=== PATIENT | male | born 1970 | race Caucasian/White ===

== ENCOUNTER 2019-01-17 08:03 | Outpatient (CLI) | payer OTHER ==
[~2019-01-17] VITALS: Ht 170.2 cm; Wt 88.5 kg
[2019-01-17] MEDS ORDERED: LISI10TA2 PO (14:25)
== END 2019-01-17 14:26 | disposition home or self-care (01) ==
LOC: PREOP 08:03 → EDUNIT# 13:30 → PREOP 14:26
PROVIDERS: ATTEND Otolaryngology Otolaryngology/Facial Plastic Surgery
DX: Z01.818 Encounter for other preprocedural examination (principal)

== ENCOUNTER 2019-02-26 02:37 | Emergency (ER) | payer OTHER ==
[~2019-02-26] VITALS: Ht 170 cm; Wt 90.0 kg
[~2019-02-26 02:37] MED LIST: HYDR-3812 PO; LISI10TA2 PO
[2019-02-26] MEDS ORDERED: ONDANSETRON 4 MG (ZOFRAN) ORAL DISSOLVE TAB PO STA (02:48)
--- NOTE | 2019-02-26 02:57 | ED Upper Extremity ---
General Chief Complaint: Upper Extremity Stated Complaint: L ARM,SHOULDER PAIN Nursing Triage Note: PT STATES HE SLEPT ON THE COUCH LAST NIGHT AND WOKE UP WITH LEFT SHOULDER PAIN. PT STATES THE PAIN WORSENED OVER THE DAY Nursing Sepsis Screen: No Definite Risk Source: patient Exam Limitations: no limitations History of Present Illness Date Seen by Provider: Feb 26, 2019 Time Seen by Provider: 02:50 Initial Comments Patient is a 48-year-old right-handed male presents with gradual onset left shoulder pain for the past greater than 18 hours. Patient states he awoke yesterday with left anterior shoulder pain. Pain is described dull aching is rated moderate to severe is worse with palpation and range of motion it is rated moderate to severe. Patient denies trauma or repetitive strain injury. Reports report history of left shoulder surgery. Pain is nonradiating. Pain is been treated with ibuprofen and ice and rest. Denies neck pain chest pain, shortness of breath. No other acute symptoms or complaints. Onset: yesterday Pain/Injury Location: left shoulder Method of Injury: unknown Modifying Factors: Improves With Immobilization, Improves With Movement, Improves With Pain Medication Allergies and Home Medications Allergies Coded Allergies: No Known Drug Allergies (Unverified , 01/17/19) Home Medications Hydrocodone/Acetaminophen 1 Each Tablet, 1 TAB PO Q4-6HR Prescribed by: LILIYA VASQUEZ on 01/20/19 1215 Lisinopril 10 Mg Tablet, 10 MG PO DAILY, (Reported) Patient Home Medication List Home Medication List Reviewed: Yes Review of Systems Constitutional: no symptoms reported EENTM: no symptoms reported Respiratory: no symptoms reported Musculoskeletal: see HPI Past Kcemenn-Wnwdur-Qpucbs Hx Past Med/Social Hx: Reviewed Nursing Past Med/Soc Hx Patient Social History Alcohol Use: Denies Use Recreational Drug Use: No Smoking Status: Never a Smoker 2nd Hand Smoke Exposure: No Recent Foreign Travel: No Contact w/Someone Who Travel: No Recent Infectious Disease Expo: No Recent Hopitalizations: No Physical Abuse: No Sexual Abuse: No Mistreated: No Seasonal Allergies Seasonal Allergies: Yes Past Medical History Surgeries: Yes (SHOULDER X2, KNEE X3) Respiratory: No Cardiac: Yes Hypertension Neurological: No Genitourinary: No Gastrointestinal: No Musculoskeletal: No Endocrine: No HEENT: Yes Cancer: No Psychosocial: No Integumentary: No Blood Disorders: No (HX DVT AFTER KNEE SX WHEN 16) Physical Exam Vital Signs Vital Signs - First Documented 02/26/19 02:45 Temp 36.8 Pulse 72 Resp 20 B/P (MAP) 174/102 (126) Pulse Ox 96 O2 Delivery Room Air Capillary Refill : Less Than 3 Seconds Height, Weight, BMI Height: 5'7.00" Weight: 195lbs. 0.0oz. 88.263724sp; 31.00 BMI Method: General Appearance: moderate distress HEENT: PERRL/EOMI, normal ENT inspection (secondary to pain) Neck: non-tender, full range of motion, supple, normal inspection Cardiovascular: normal peripheral pulses, regular rate, rhythm Respiratory: chest non-tender, lungs clear Gastrointestinal: soft Back: normal inspection Shoulder: No bone tenderness, No deformity (left anterior deltoid pain/tenderness, worse with palpation and passive range of motion, active range of motion limited by pain); limited ROM, pain, soft tissue tenderness Elbow/Forearm: normal inspection, non-tender, no evidence of injury, normal ROM Wrist: Yes normal inspection Progress/Results/Core Measures Results/Orders My Orders Orders - MARIO PERDOMO DO Hydromorphone Injection (Dilaudid Inject (02/26/19 03:00) Ketorolac Injection (Toradol Injection) (02/26/19 03:00) Ondansetron Oral Dissolve Tab (Zofran (02/26/19 02:48) Nursing Communication (Order) (02/26/19 02:48) Shoulder 3 View Left (02/26/19 02:48) Vital Signs/I&O 02/26/19 02:45 Temp 36.8 Pulse 72 Resp 20 B/P (MAP) 174/102 (126) Pulse Ox 96 O2 Delivery Room Air Blood Pressure Mean: 126 Departure Communication (Admissions) Reproducible left shoulder pain consistent with rotator cuff injury. Narcotic pain medication given with with some symptomatic relief. X-ray reviewed. Will place in sling with PCP follow-up. Return precautions reviewed. Impression Primary Impression: Pain in left shoulder Additional Impression: Rotator cuff injury Disposition: 01 HOME, SELF-CARE Condition: Stable Departure-Patient Inst. Referrals: SELF,KALYN CHIU (PCP/Family) Primary Care Physician Patient Instructions: Rotator Cuff Injury Add. Discharge Instructions: You were evaluated in the emergency department for left shoulder pain. X-rays were obtained and do not show evidence of bony abnormality. Symptoms are most consistent with a rotator cuff type injury. Please wear sling, apply ice for 20- 30 minutes every 2-3 hours, take 600 mg of ibuprofen every 8 hours and Percocet as needed for additional pain relief. Follow-up with your PCP early next week for reevaluation consideration of MRI and orthopedic referral. All discharge instructions reviewed with patient and/or family. Voiced understanding. Scripts Oxycodone HCl/Acetaminophen (Percocet 10-325 mg Tablet) 1 Each Tablet 1 TAB PO Q6H PRN for PAIN-MODERATE MDD 3 TABS for 5 Days, #20 TAB Prov: MARIO PERDOMO DO 02/26/19 MARIO PERDOMO DO Feb 26, 2019 02:57
[2019-02-26] MEDS ORDERED: OXYC1TAB12 PO (02:58)
[2019-02-26] MEDS ORDERED: HYDROmorphone 2 MG/ML VIAL (DILAUDID) IM ONE (03:00)
[2019-02-26] MEDS ORDERED: KETOROLAC 60 MG/2 ML VIAL IM ONE (03:00)
[2019-02-26 03:13] VITALS: BP 179/112
--- NOTE | 2019-02-26 08:36 | Diagnostic Imaging Report ---
Clinical indication: Patient with shoulder pain. Exam: X-ray of the left shoulder, 3 views. Comparison: None. Findings: There is no acute fracture or dislocation. There is no significant bone or joint abnormality. The left acromioclavicular interval is unremarkable. Impression: Unremarkable x-ray of the left shoulder. Dictated by: Dictated on workstation # [id number]
== END 2019-02-26 03:13 | disposition home or self-care (01) ==
LOC: EDUNIT# 02:37 → ER FS 02:38
DX: S46.002A Unspecified injury of muscle(s) and tendon(s) of the rotator cuff of left shoulder, initial encounter (principal); I10 Essential (primary) hypertension; Z86.718 Personal history of other venous thrombosis and embolism; Z98.890 Other specified postprocedural states; X58.XXXA Exposure to other specified factors, initial encounter
CPT/HCPCS: 73030; 96372

== ENCOUNTER 2022-07-18 14:23 | Emergency (ER) | payer OTHER ==
[~2022-07-18 14:23] MED LIST changes: +ACHD5005 PO; -HYDR-3812 PO; -LISI10TA2 PO; +LISI10TA25 PO; +OXYC1TAB12 PO
[2022-07-18] MEDS ORDERED: NS IV 1000 ML 1,000 ML IV STA ×2 (14:41→16:18)
[2022-07-18 14:53] LABS: BASOPHILS # (AUTO) 0.1 10^3/uL (0.0-0.1); BASOPHILS % (AUTO) 1 % (0-10); EOSINOPHILS # (AUTO) 0.7 10^3/uL (0.0-0.3); EOSINOPHILS % (AUTO) 3 % (0-10); HEMATOCRIT 46 % (40-54); HEMOGLOBIN 15.4 g/dL (13.3-17.7); LYMPHOCYTES # (AUTO) 2.5 10^3/uL (1.0-4.0); LYMPHOCYTES % (AUTO) 11 % (12-44); MEAN CORPUSCULAR HEMOGLOBIN 29 pg (25-34); MEAN CORPUSCULAR HGB CONC 34 g/dL (32-36); MEAN CORPUSCULAR VOLUME 87 fL (80-99); MEAN PLATELET VOLUME 8.6 fL (9.0-12.2); MONOCYTES # (AUTO) 2.1 10^3/uL (0.0-1.0); MONOCYTES % (AUTO) 10 % (0-12); NEUTROPHILS # (AUTO) 16.5 10^3/uL (1.8-7.8); NEUTROPHILS % (AUTO) 74 % (42-75); PLATELET COUNT 406 10^3/uL (130-400); WHITE BLOOD COUNT 22.3 10^3/uL (4.3-11.0)
[2022-07-18] MEDS ORDERED: AZITHROMYCIN 250 MG TAB (ZITHROMAX) PO STA (15:08)
[2022-07-18] MEDS ORDERED: ORPHENADRINE 60 MG/2 ML (NORFLEX) AMP (ED ONLY) IVP STA (15:08)
--- NOTE | 2022-07-18 15:10 | Diagnostic Imaging Report ---
INDICATION: Progressive cough. FINDINGS: There are abnormal airspace opacities present at the right lung base. In the setting of cough, this may reflect a pneumonia. This should be followed to complete resolution. The left lung appears clear. There is no significant effusion evident. There is no pneumothorax. Heart size is normal. Pulmonary vascularity is normal. IMPRESSION: Abnormal airspace opacities at the right lung base most likely reflecting pneumonia. This should however be followed to complete resolution to exclude the possibility of a lung mass. The left lung appears clear. Dictated by: Dictated on workstation # [id number]
--- NOTE | 2022-07-18 15:13 | ED Cough/URI ---
General Chief Complaint: Respiratory Problems Stated Complaint: SOB Nursing Triage Note: Patient presents to the ED from [facility] with c/o shortness of breath and dizziness. Reports cough x1 month and worsening shortness of breath today. States he was being seen by his PCP and given an albuterol breathing treatment but was unable to tolerate it. Stood up and became dizzy. Was sent to the ED for further evaluation. Patient ambulated to room. Source: patient History of Present Illness Date Seen by Provider: Jul 18, 2022 Time Seen by Provider: 14:39 Initial Comments 51-year-old male presenting with complaints of increasing right lower chest and rib pain. He has been coughing for over a month and being more short of breath with exertion. He states he every year gets similar symptoms but does not have the pain like this. He thought that he may be in broken a rib with coughing. He was seen in the clinic and when trying to do a breathing treatment it was making him cough which made the pain worse and hurt his side more. He stood up and became dizzy after that. They advised him to come to the emergency department for further testing and evaluation. He denies having a fever or chills, abdominal pain, nausea, vomiting, change in his bowels, runny nose or congestion. He reports having pneumonia several times as a child and that every year he gets symptoms of cough and cold that last for a month or more. Timing/Duration: just prior to arrival (Worsening just prior to arrival when he was trying to do a breathing treatment in the clinic. However his symptoms have been going on for over a month with the right lower chest and rib pain for the last several days) Severity/Quality: severe, dry cough Prior Episodes/Possible Cause: occasional episodes (At least yearly having episodes of chronic coughing) Modifying Factors: Worse With Activity, Worse With Albuterol Nebulizer, Worse With Coughing Associated Symptoms: chest pain/soreness (Right lower lateral), cough, dizziness, shortness of breath, wheezing Allergies and Home Medications Allergies Coded Allergies: No Known Drug Allergies (Unverified , 01/17/19) Patient Home Medication List Home Medication List Reviewed: Yes Albuterol Sulfate (Proventil Hfa) 6.7 Gm Hfa.aer.ad, 2 PUFF INH Q6H PRN for SHORTNESS OF BREATH Prescribed by: LING MARTINS on 07/18/22 1716 Azithromycin (Azithromycin) 500 Mg Tablet, 500 MG PO DAILY Prescribed by: LING MARTINS on 07/18/22 1636 Hydrocodone Bit/Acetaminophen (Lortab 5 Mg Tablet) 1 Each Tablet, 1 TAB PO Q4- 6HR Prescribed by: LILIYA VASQUEZ on 01/20/19 1215 Lisinopril (Lisinopril) 10 Mg Tablet, 10 MG PO DAILY, (Reported) Entered as Reported by: ROLLY BELTRAN on 01/17/19 1425 Oxycodone HCl/Acetaminophen (Percocet 10-325 mg Tablet) 1 Each Tablet, 1 TAB PO Q6H PRN for PAIN-MODERATE Prescribed by: MARIO PERDOMO on 02/26/19 0258 Prednisone (Prednisone) 20 Mg Tab, 40 MG PO DAILY Prescribed by: LING MARTINS on 07/18/22 1636 Review of Systems Review of Systems Constitutional: No chills, No diaphoresis; dizziness; No fever EENTM: no symptoms reported Respiratory: cough, short of breath, wheezing Cardiovascular: chest pain (Right lower lateral chest pain) Gastrointestinal: no symptoms reported Genitourinary: no symptoms reported Musculoskeletal: no symptoms reported Skin: No rash Psychiatric/Neurological: No Symptoms Reported Past Hnivmui-Zksfoa-Zkijvg Hx Patient Social History Tobacco Use?: No Use of E-Cig and/or Vaping dev: No Substance use?: No Alcohol Use?: Yes Alcohol Frequency: Once in a while Immunizations Up To Date Influenza Vaccine Up-to-Date: No; Not Current First/Initial COVID19 Vaccinat: Denies Seasonal Allergies Seasonal Allergies: Yes Past Medical History Surgery/Hospitalization HX: Asthma; HTN Surgeries: Yes (SHOULDER X2, KNEE X3) Respiratory: No Cardiac: Yes Hypertension Neurological: No Genitourinary: No Gastrointestinal: No Musculoskeletal: No Endocrine: No HEENT: Yes Cancer: No Psychosocial: No Integumentary: No Blood Disorders: No (HX DVT AFTER KNEE SX WHEN 16) Physical Exam Vital Signs - First Documented Capillary Refill : Less Than 3 Seconds Height: 5'7.00" Weight: 195lbs. 0.0oz. 88.123112ub; 31.00 BMI Method: General Appearance: WD/WN, no apparent distress HEENT: PERRL/EOMI, pharynx normal Neck: non-tender, full range of motion, supple, normal inspection Respiratory: No chest non-tender (Tender to palpation in the right lower lateral chest); lungs clear, no respiratory distress, no accessory muscle use, decreased breath sounds Cardiovascular: normal peripheral pulses, tachycardia Gastrointestinal: normal bowel sounds, non tender, soft, no pulsatile mass Extremities: normal range of motion, non-tender, normal capillary refill Neurologic/Psychiatric: alert, oriented x 3 Skin: normal color, warm/dry Focused Exam Sepsis Stage: Sepsis Possible Source: Pulmonary Lactate Level 07/18/22 14:33: Lactic Acid Level 2.30*H Time of Focused Exam: 16:08 Respiratory: No Chest Non Tender (tender to palpation right lateral chest wall. No crepitus or step off); Lungs Clear, Normal Breath Sounds, No Accessory Muscle Use, No Respiratory Distress Cardiovascular: Regular Rate, Rhythm, Normal Peripheral Pulses Capillary Refill: Less Than 3 Seconds Peripheral Pulses: 2+ Carotid (R), 2+ Carotid (L), 2+ Radial Pulses (R), 2+ Radial Pulses (L) Skin: normal color, warm/dry Lactic Acid Level Laboratory Tests Test 07/18/22 14:33 Lactic Acid Level 2.30 MMOL/L (0.50-2.00) *H Within 3hrs of presentation: Admin fluids, Admin ABX, Blood cultures prior to ABX's, D/C Instructions given to patient, Focus exam, Lactate level Progress/Results/Core Measures Suspected Sepsis SIRS Temperature: Pulse: 118 Respiratory Rate: 25 Laboratory Tests 07/18/22 14:33: White Blood Count 22.3H Blood Pressure 165 /97 Mean: 119 07/18/22 14:33: Lactic Acid Level 2.30*H Laboratory Tests 07/18/22 14:33: Creatinine 1.07, Platelet Count 406H, Total Bilirubin 0.2 Results/Orders Lab Results Laboratory Tests Test 07/18/22 14:33 07/18/22 14:35 Range/Units White Blood Count 22.3 H 4.3-11.0 10^3/uL Red Blood Count 5.27 4.30-5.52 10^6/uL Hemoglobin 15.4 13.3-17.7 g/dL Hematocrit 46 40-54 % Mean Corpuscular Volume 87 80-99 fL Mean Corpuscular Hemoglobin 29 25-34 pg Mean Corpuscular Hemoglobin Concent 34 32-36 g/dL Red Cell Distribution Width 13.1 10.0-14.5 % Platelet Count 406 H 130-400 10^3/uL Mean Platelet Volume 8.6 L 9.0-12.2 fL Immature Granulocyte % (Auto) 2 % Neutrophils (%) (Auto) 74 42-75 % Lymphocytes (%) (Auto) 11 L 12-44 % Monocytes (%) (Auto) 10 0-12 % Eosinophils (%) (Auto) 3 0-10 % Basophils (%) (Auto) 1 0-10 % Neutrophils # (Auto) 16.5 H 1.8-7.8 10^3/uL Lymphocytes # (Auto) 2.5 1.0-4.0 10^3/uL Monocytes # (Auto) 2.1 H 0.0-1.0 10^3/uL Eosinophils # (Auto) 0.7 H 0.0-0.3 10^3/uL Basophils # (Auto) 0.1 0.0-0.1 10^3/uL Immature Granulocyte # (Auto) 0.4 H 0.0-0.1 10^3/uL Neutrophils % (Manual) 72 % Lymphocytes % (Manual) 14 % Monocytes % (Manual) 6 % Eosinophils % (Manual) 3 % Basophils % (Manual) 1 % Band Neutrophils 4 % Sodium Level 138 135-145 MMOL/L Potassium Level 3.2 L 3.6-5.0 MMOL/L Chloride Level 99 98-107 MMOL/L Carbon Dioxide Level 24 21-32 MMOL/L Anion Gap 15 H 5-14 MMOL/L Blood Urea Nitrogen 18 7-18 MG/DL Creatinine 1.07 0.60-1.30 MG/DL Estimat Glomerular Filtration Rate 84 BUN/Creatinine Ratio 17 Glucose Level 126 H 70-105 MG/DL Lactic Acid Level 2.30 *H 0.50-2.00 MMOL/L Calcium Level 9.4 8.5-10.1 MG/DL Corrected Calcium 9.2 8.5-10.1 MG/DL Magnesium Level 2.0 1.6-2.4 MG/DL Total Bilirubin 0.2 0.1-1.0 MG/DL Aspartate Amino Transf (AST/SGOT) 14 5-34 U/L Alanine Aminotransferase (ALT/SGPT) 20 0-55 U/L Alkaline Phosphatase 100 40-136 U/L C-Reactive Protein 1.06 H <0.50 MG/DL Total Protein 7.3 6.4-8.2 GM/DL Albumin 4.2 3.2-4.5 GM/DL Influenza Type A (RT-PCR) Not Detected Not Detecte Influenza Type B (RT-PCR) Not Detected Not Detecte SARS-CoV-2 RNA (RT-PCR) Not Detected Not Detecte My Orders Orders - LING MARTINS MD Cbc With Automated Diff (07/18/22 14:39) Comprehensive Metabolic Panel (07/18/22 14:39) Blood Culture (07/18/22 14:39) Chest 1 View Ap/Pa Only (07/18/22 14:39) Magnesium (07/18/22 14:39) Ekg Tracing (07/18/22 14:39) O2 (07/18/22 14:39) Ed Iv/Invasive Line Start (07/18/22 14:39) Monitor-Rhythm Ecg Trace Only (07/18/22 14:39) Crp Fs (07/18/22 14:39) Lactic Acid Analyzer (07/18/22 14:39) Covid 19 Inhouse Test (07/18/22 14:41) Influenza A And B By Pcr (07/18/22 14:41) Isolation Central Supply Req (07/18/22 14:41) Ns Iv 1000 Ml (Sodium Chloride 0.9%) (07/18/22 14:41) Manual Differential (07/18/22 14:33) Dexamethasone Injection (Decadron Inje (07/18/22 15:08) Orphenadrine Inj (Ed Only) (Norflex Inje (07/18/22 15:08) Azithromycin Tablet (Zithromax Tablet) (07/18/22 15:08) Ns Iv 1000 Ml (Sodium Chloride 0.9%) (07/18/22 16:18) Vital Signs/I&O 07/18/22 07/18/22 07/18/22 14:29 14:29 17:03 Temp 36.6 36.6 Pulse 118 93 Resp 25 23 B/P (MAP) 165/97 (119) 124/66 Pulse Ox 94 95 O2 Delivery Room Air Room Air Room Air Capillary Refill : Less Than 3 Seconds Blood Pressure Mean: 119 Progress Note #1: Progress Note Potential life-threatening diagnosis of pneumonia, lung mass, pneumothorax, pulmonary embolism, myocardial infarction. Placed on cardiac telemetry monitoring and initial interpretation is sinus tachycardia with heart rate in the 120s. Ordered electrocardiogram for more formal evaluation of his rate and rhythm. Chest x-ray to look for signs of pneumonia/pneumothorax/effusion/mass. Ordered peripheral IV to obtain blood for blood count, comprehensive metabolic profile for electrolytes and renal and hepatic function. Ordered blood cultures with a lactic acid to look for signs of sepsis. Progress Note #2: Progress Note Complete blood count was elevated to 22.3 thousand for his white blood cells. He had a left shift along with this. This comprehensive metabolic profile did not show any acute significant abnormality to cause his shortness of breath. He did have elevation of his lactic acid to 2.3. He was receiving IV fluids and was also given Rocephin 1 g IV along with Zithromax 500 mg p.o. to treat for pneumonia. On my review of his 1 view chest x-ray he had right lower lobe infiltrate. This could certainly be contributing to his pain in the right lower lobe. He reports that his breathing was improved after IV fluids, steroid, antibiotics, breathing treatment. Advised patient that he also had signs of mild sepsis with his mild elevation of the lactic acid and doubling of his white blood cell count. We will give a second liter of fluid and provided he is continuing to breathe easier and not be as short of breath as earlier with improved heart rate and blood pressure would anticipate discharge to home on oral antibiotics. Progress Note #3: Progress Note I reviewed the radiologist report on the 1 view chest x-ray and they agreed that there was infiltrate in the right lower lobe. Patient was feeling better after the second liter of fluids and was able to walk to the bathroom and back to his room without getting winded and out of breath. His coughing was improved as well. Counseled to use [id number] Mucinex to help thin out his mucus and congestion. Take the full course of antibiotics to treat for infection. He asked for refill on an albuterol inhaler so I sent that to the pharmacy as well. Prednisone burst of 40 mg for 5 days to try and help with inflammation and cough. Encourage fluids and hydration. Use acetaminophen and/or ibuprofen [id number] to help with his rib pain. Check back with the primary care clinic for continued concerns or return if having worsening symptoms ECG Initial ECG Impression Date: Jul 18, 2022 Initial ECG Impression Time: 14:33 Initial ECG Rate: 113 Initial ECG Rhythm: S.Tach Initial ECG Comparisson: Unchanged (January 20, 2019) Comment My initial interpretation of his electrocardiogram shows sinus tachycardia with a heart rate of 113 bpm. MT interval [address] elevation. QT interval 324 ms with a QTc interval 391 ms. Overall appears similar to tracing from January 20, 2019. Diagnostic Imaging Diagonstic Imaging: Xray Plain Films/CT/US/NM/MRI: chest Comments NAME: NIRMALA SPEAR [facility] REC#: [id number] PT STATUS: REG ER : 1970 PHYSICIAN: LING MARTINS MD ADMIT DATE: 07/18/22/ER FS Draft Date of Exam:07/18/22 CHEST 1 VIEW AP/PA ONLY INDICATION: Progressive cough. FINDINGS: There are abnormal airspace opacities present at the right lung base. In the setting of cough, this may reflect a pneumonia. This should be followed to complete resolution. The left lung appears clear. There is no significant effusion evident. There is no pneumothorax. Heart size is normal. Pulmonary vascularity is normal. IMPRESSION: Abnormal airspace opacities at the right lung base most likely reflecting pneumonia. This should however be followed to complete resolution to exclude the possibility of a lung mass. The left lung appears clear. Dictated on workstation # [id number] Dict: 07/18/22 1502 Trans: 07/18/22 1510 [facility] [id number] Interpreted by: ZAINAB SANCHEZ MD Electronically signed by: Reviewed: Reviewed by Me Departure Impression Primary Impression: Pneumonia of right lower lobe due to infectious organism Additional Impression: Sepsis Qualified Codes: A41.9 - Sepsis, unspecified organism Disposition: 01 HOME, SELF-CARE Condition: Stable Departure-Patient Inst. Decision time for Depature: 17:03 Referrals: KALYN LYMAN MD (PCP) Primary Care Physician Patient Instructions: Pneumonia, Adult ED, Sepsis, Adult (DC) Add. Discharge Instructions: Stay well-hydrated and drink plenty of fluids. Use breathing treatments every 4-6 hours as needed for shortness of breath and cough. You may try alternating ice and heat to your right chest wall to help with the pain. Consider taking Mucinex [id number] to help thin out any cough and congestion so that you are not having a cough so hard to get anything up. Take the full course of antibiotics and steroids to help treat for infection over the next 5 days. If worsening symptoms or not improving return or seek medical care for further evaluation. All discharge instructions reviewed with patient and/or family. Voiced understanding. Scripts Albuterol Sulfate (Proventil Hfa) 6.7 Gm Hfa.aer.ad 2 PUFF INH Q6H PRN for SHORTNESS OF BREATH for 30 Days, #6.7 GM 1 Refill Prov: LING MARTINS MD 07/18/22 Prednisone (Prednisone) 20 Mg Tab 40 MG PO DAILY for Cough/short of breath for 5 Days, #10 TAB 0 Refills Prov: LING MARTINS MD 07/18/22 Azithromycin (Azithromycin) 500 Mg Tablet 500 MG PO DAILY for pneumonia for 5 Days, #5 TAB 0 Refills Prov: LING MARTINS MD 07/18/22 LING MARTINS MD Jul 18, 2022 15:13
[2022-07-18 15:16] LABS: BAND NEUTROPHILS 4 %; BASOPHILS % (MANUAL) 1 %; EOSINOPHILS % (MANUAL) 3 %; LYMPHOCYTES % (MANUAL) 14 %; MONOCYTES % (MANUAL) 6 %; NEUTROPHILS % (MANUAL) 72 %
[2022-07-18 15:18] LABS: BILIRUBIN,TOTAL 0.2 MG/DL (0.1-1.0); CALCIUM 9.4 MG/DL (8.5-10.1); CREATININE SERUM 1.07 MG/DL (0.60-1.30); POTASSIUM 3.2 MMOL/L (3.6-5.0)
[2022-07-18 15:19] LABS: ALBUMIN 4.2 GM/DL (3.2-4.5); TOTAL PROTEIN 7.3 GM/DL (6.4-8.2)
[2022-07-18] MEDS ORDERED: AZIT500T9 PO (16:36)
[2022-07-18] MEDS ORDERED: PRD20T PO (16:36)
[2022-07-18 17:03] VITALS: BP 124/66
[2022-07-18] MEDS ORDERED: RT-ALBUINH INH (17:16)
== END 2022-07-18 17:03 | disposition home or self-care (01) ==
LOC: EDUNIT# 14:23 → ER FS 14:24
DX: A41.9 Sepsis, unspecified organism (principal); J16.8 Pneumonia due to other specified infectious organisms; R74.02 Elevation of levels of lactic acid dehydrogenase [LDH]; Z28.310 Unvaccinated for COVID-19; Z20.822 Contact with and (suspected) exposure to COVID-19
CPT/HCPCS: 36415; 71045; 80053; 83605; 83735; 85007; 85027; 86141; 87040; 87636; 93005; 93041

== ENCOUNTER 2022-07-26 12:10 | Inpatient (IN) | payer SELFPAY ==
[~2022-07-26] VITALS: Ht 170.2 cm; Wt 103.4 kg
[~2022-07-26 12:10] MED LIST changes: +AZIT500T9 PO; +PRD20T PO; +RT-ALBUINH INH
[2022-07-26] MEDS ORDERED: morphine INJ 10 MG/ML 1ML (SYR OR VIAL) IVP STA (12:27)
[2022-07-26] MEDS ORDERED: ONDANSETRON 4 MG/2 ML (SDV) Z0FRAN IVP ONE ×2 (12:30→14:00)
[2022-07-26] MEDS ORDERED: RT-ALBUTEROL/IPRATROPIUM 3 ML (DUONEB) VIAL INH ONE (12:30)
--- NOTE | 2022-07-26 12:48 | Diagnostic Imaging Report ---
EXAMINATION: Chest 1 view HISTORY: Shortness of breath. COMPARISON: 07/18/2022. FINDINGS: Interval marked increase in a moderate to large right-sided pleural effusion with increasing right basilar opacities. Stable cardiac silhouette. No pneumothorax. IMPRESSION: 1. Increasing moderate to large right-sided pleural effusion with increasing right basilar opacities. Dictated by: Dictated on workstation # [id number]
[2022-07-26 13:09] LABS: BASOPHILS # (AUTO) 0.1 10^3/uL (0.0-0.1); BASOPHILS % (AUTO) 1 % (0-10); EOSINOPHILS # (AUTO) 0.9 10^3/uL (0.0-0.3); EOSINOPHILS % (AUTO) 4 % (0-10); HEMATOCRIT 51 % (40-54); HEMOGLOBIN 16.7 g/dL (13.3-17.7); LYMPHOCYTES # (AUTO) 1.6 10^3/uL (1.0-4.0); LYMPHOCYTES % (AUTO) 6 % (12-44); MEAN CORPUSCULAR HEMOGLOBIN 29 pg (25-34); MEAN CORPUSCULAR HGB CONC 33 g/dL (32-36); MEAN CORPUSCULAR VOLUME 88 fL (80-99); MEAN PLATELET VOLUME 8.2 fL (9.0-12.2); MONOCYTES % (AUTO) 8 % (0-12); NEUTROPHILS # (AUTO) 19.3 10^3/uL (1.8-7.8); NEUTROPHILS % (AUTO) 78 % (42-75); PLATELET COUNT 376 10^3/uL (130-400); WHITE BLOOD COUNT 24.7 10^3/uL (4.3-11.0)
[2022-07-26 13:19] LABS: INR 0.9 (0.8-1.4); PROTHROMBIN TIME PATIENT 12.3 SEC (12.2-14.7)
[2022-07-26 13:29] LABS: ALANINE AMINOTRANSFERASE 44 U/L (0-55); ALBUMIN 3.4 GM/DL (3.2-4.5); ALKALINE PHOSPHATASE 101 U/L (40-136); BILIRUBIN,TOTAL 0.5 MG/DL (0.1-1.0); BUN/CREATININE RATIO 19; CALCIUM 9.4 MG/DL (8.5-10.1); CARBON DIOXIDE 24 MMOL/L (21-32); CHLORIDE 97 MMOL/L (98-107); GFR ESTIMATED 103; GLUCOSE 134 MG/DL (70-105); POTASSIUM 4.2 MMOL/L (3.6-5.0); SODIUM 134 MMOL/L (135-145); TOTAL PROTEIN 6.6 GM/DL (6.4-8.2)
[2022-07-26 13:37] LABS: EOSINOPHILS % (MANUAL) 2 %; LYMPHOCYTES % (MANUAL) 6 %; MONOCYTES % (MANUAL) 9 %; NEUTROPHILS % (MANUAL) 83 %
--- NOTE | 2022-07-26 13:41 | Diagnostic Imaging Report ---
EXAMINATION: CT chest with intravenous contrast. TECHNIQUE: Multiple contiguous axial images were obtained through the chest after the uneventful administration of intravenous contrast. All CT scans use one or more of the following dose optimizing techniques: automated exposure control, MA and/or KvP adjustment based on patient size and exam type or iterative reconstruction. HISTORY: Left-sided chest pain. Shortness of breath. COMPARISON: Chest radiograph performed earlier the same date. FINDINGS: The heart size is within normal limits. No pericardial effusion is present. There is no mediastinal, hilar, or axillary lymphadenopathy. Large right-sided pleural effusion is seen. There is suggestion of nodularity within the pleura, with one of the more prominent nodules measuring 2.6 x 1.2 cm in the upper right lung. No pleural effusion is seen on the left. No pneumothorax. Dependent and patchy opacities are seen in the right lung. No central endobronchial obstructing lesion. There is right to left mediastinal shift due to mass effect from the large pleural effusion. The osseous structures demonstrate no acute abnormalities. Limited views of the upper abdominal structures demonstrate no acute abnormalities. Both adrenal glands are unremarkable. IMPRESSION: 1. Large right-sided pleural effusion with findings concerning for malignancy given the nodules along the pleural surface. Recommend correlation with patient history and follow-up as indicated. Thoracentesis would also be of benefit to evaluate the fluid. 2. Patchy and consolidative opacities in the right lung. Findings may represent a combination of atelectasis or infection. Dictated by: Dictated on workstation # [id number]
[2022-07-26] MEDS ORDERED: NS 100 ML (IVPB) BAG IV ONE (13:45)
[2022-07-26] MEDS ORDERED: HOLD METFORMIN - RECEIVED CONTRAST 20 ML VIAL IV SCH (13:45)
[2022-07-26] MEDS ORDERED: PIPERACILLIN SODIUM/TAZOBACTAM 4.5 GM in NS (IVPB) 100 ML IV ONE (13:45)
[2022-07-26] MEDS ORDERED: IOHEXOL 350 MG/ML 100 ML (OMNIPAQUE 350) VIAL IV ONE (13:45)
[2022-07-26] MEDS ORDERED: VANCOMYCIN INJECTION 1,000 MG in NS (IVPB) 250 ML IV ONE (14:00)
--- NOTE | 2022-07-26 15:41 | History & Physical-Hospitalist ---
History of Present Illness HPI/Chief Complaint CC: Acute respiratory failure with right pleural effusion with possible masses HPI: This is a 51yoWM clinic patient of Dr Clemons who was dx with PNA last week and finished his abx but saw Dr Clemons in office for right rib pain due to cough induced rib bruise yesterday and he thought he was on the mend but presented to the ER due to worsened dyspnea and was found to have right sided pleural effusion and possible masses suspicious for neoplasm versus infection. He is a lifetime non-smoker. CT IMPRESSION: 1. Large right-sided pleural effusion with findings concerning for malignancy given the nodules along the pleural surface. Recommend correlation with patient history and follow-up as indicated. Thoracentesis would also be of benefit to evaluate the fluid. 2. Patchy and consolidative opacities in the right lung. Findings may represent a combination of atelectasis or infection. Source: patient Exam Limitations: clinical condition Date Seen 07/26/22 Time Seen by a Provider: 15:30 Attending Physician Jimmy Clemons MD PCP Admitting Physician: Sammie Abbott DO Attending Physician: Sammie Abbott DO Referring Physician Date of Admission Jul 26, 2022 at 15:25 Home Medications & Allergies Home Medications Reviewed patient Home Medication Reconciliation performed by pharmacy medication reconciliations central sterile technician and/or nursing. Patients Allergies have been reviewed. Allergies Allergies Coded Allergies No Known Drug Allergies (Unverified01/17/19) Past Oiccdwh-Yyzelv-Vvsnae Hx Patient Social History Marrital Status: single Employed/Student: employed Tobacco Use?: No Smoking Status: Never a Smoker Use of E-Cig and/or Vaping dev: No Substance use?: No Alcohol Use?: No Immunizations Up To Date First/Initial COVID19 Vaccinat: Denies Seasonal Allergies Seasonal Allergies: Yes Current Status Primary Language: Togolese Preferred Spoken Language: Togolese Past Medical History Pneumonia Hypertension Blood Disorders: No (HX DVT AFTER KNEE SX WHEN 16) Review of Systems Constitutional: see HPI EENTM: no symptoms reported Respiratory: dyspnea on exertion, short of breath Cardiovascular: no symptoms reported Gastrointestinal: no symptoms reported Genitourinary: no symptoms reported Musculoskeletal: no symptoms reported Skin: no symptoms reported Psychiatric/Neurological: No Symptoms Reported All Other Systems Reviewed Negative Unless Noted: Yes Physical Exam Physical Exam Vital Signs Vital Signs - First Documented 07/26/22 07/26/22 12:21 16:00 Pulse 117 Resp 18 B/P (MAP) 131/91 (104) Pulse Ox 95 O2 Delivery Room Air Capillary Refill : Height, Weight, BMI Height: 5'7.00" Weight: 195lbs. 0.0oz. 88.505657ao; 33.00 BMI Method: General Appearance: Anxious, Chronically ill, Mild Distress Respiratory: Crackles, Decreased Breath Sounds, Wheezing Cardiovascular: Regular Rate, Rhythm, No Edema, No Gallop, No JVD, No Murmur, Normal Peripheral Pulses Neurologic/Psychiatric: Alert, Oriented x3, No Motor/Sensory Deficits, Normal Mood/Affect Results Results/Procedures Labs Laboratory Tests 07/26/22 13:00 Patient resulted labs reviewed. Assessment/Plan Admission Diagnosis Assessment: Acute respiratory failure Recurrent PNA failed outpatient treatment Right sided large pleural effusion Hypoxia Massess on CT scan? Plan: IV abx O2 Dr Jeffery consult Thoracentesis? Admission Status: Inpatient Order (span 2 midnights) Reason for Inpatient Admission: resp failure SAMMIE ABBOTT DO Jul 26, 2022 15:41
[2022-07-26] MEDS ORDERED: ANTACID SUSP 30 ML UDC (MYLANTA) PO PRN ×2 (15:45)
[2022-07-26] MEDS ORDERED: BISACODYL 10 MG SUPP (DULCOLAX) PR PRN ×2 (15:45)
[2022-07-26] MEDS ORDERED: NS IV 500 ML 500 ML IV PRN ×2 (15:45)
[2022-07-26] MEDS ORDERED: LORazepam INJ 2 MG/ML (ATIVAN) VIAL IVP PRN (15:45)
[2022-07-26] MEDS ORDERED: diphenhydrAMINE 25 MG TAB (BENADRYL) PO PRN ×2 (15:45)
[2022-07-26] MEDS ORDERED: ONDANSETRON 4 MG (ZOFRAN) ORAL DISSOLVE TAB PO PRN ×2 (15:45)
[2022-07-26] MEDS ORDERED: MELATONIN 3 MG TABLET PO PRN (15:45)
[2022-07-26] MEDS ORDERED: LORazepam 0.5 MG (ATIVAN) TABLET PO PRN (15:45)
[2022-07-26] MEDS ORDERED: diphenhydrAMINE 50 MG/ML INJ (BENADRYL) IVP PRN ×2 (15:45)
[2022-07-26] MEDS ORDERED: ACETAMINOPHEN 325 MG TABLET PO PRN (15:45)
[2022-07-26] MEDS ORDERED: ENOXAPARIN 40 MG/0.4 ML (LOVENOX) SYR SC SCH (15:45)
[2022-07-26] MEDS ORDERED: polyethylene glycoL POWDER 17 GM (MIRALAX) PACK PO PRN ×2 (15:45)
[2022-07-26] MEDS ORDERED: PIPERACILLIN SODIUM/TAZOBACTAM 4.5 GM in NS (IVPB) 100 ML IV SCH (15:45)
[2022-07-26] MEDS ORDERED: ONDANSETRON 4 MG/2 ML (SDV) Z0FRAN IV PRN ×2 (15:45)
[2022-07-26] MEDS ORDERED: VANCOMYCIN INJECTION 0.1 MG in NS (IVPB) 250 ML IV SCH ×4 (15:45)
[2022-07-26] MEDS ORDERED: HYDROmorphone 2 MG/ML VIAL (DILAUDID) IV PRN (15:45)
--- NOTE | 2022-07-26 16:03 | Tele-ICU Consult ---
History of Present Illness History of Present Illness Date Seen by Provider: Jul 26, 2022 Time Seen by Provider: 16:13 Date of Admission 07/26/22 History of Present Illness (Tele-ICU Physician , consultation) Available chart/ vitals / labs / Images reviewed H&P is from ER notes Patient's information available about PMH, allergy reviewed in EMR. ROS as per chart and RN report Video assessment done using teleICU camera, rest of exam as per RN Discussed with RN. He is a 51-year-old male with past medical history of hypertension and recently diagnosed with a pneumonia and he was treated and released on 07/18/2022 with azithromycin. Today he came with a complaint of for right-sided chest pain shortness of breath and cough without much sputum production. His right side of the chest is hurting so much that he thought he may have a broken rib. He was using heating pads at home. He denies any fever but he had some sweating's at night. He denies any smoking but chews tobacco. No history of drug abuse present. No known history of COPD, asthma. No history of drug abuse. Today he went to [place] emergency room where he was evaluated and found to have a marked leukocytosis, and chest x-ray showed right pleural effusion large, hence they did a CT scan of the chest which showed right-sided large pleural effusion with underlying atelectasis. Radiologist also reported pleural nodularity. He is subsequently admitted to via [facility] intensive care unit where I have interviewed via video visit. Also discussed with the patient's . Impression 1. Patient likely to have an underlying pneumonia with subacute empyema versus parapneumonic effusion. This is most likely bacterial however a rare possibility of anaerobic bacterial versus fungal pneumonia cannot be ruled out. 2. Tobacco chewing disorder 3. Hypertension. 4. Right-sided chest pain most likely due to pleurisy and pneumonia. Recommendations 1. Agree with antibiotic choice of vancomycin and Zosyn. 2. We will give Dilaudid IV as needed for chest pain 3. Suggest surgical consultation for thoracentesis/chest tube insertion 4. We will send pleural fluid for cell count, culture, total protein, LDH, and pH. 5. DVT prophylaxis with Lovenox. 6. Further recommendations will be made depending upon the thoracentesis results. Discussed with the patient's and the ICU nurse. Coordination of care with with primary care physician and bedside consultants. Critical care time 32 minutes. Allergies and Home Medications Allergies Coded Allergies: No Known Drug Allergies (Unverified , 01/17/19) Home Medications Albuterol Sulfate 6.7 Gm Hfa.aer.ad, 2 PUFF INH Q6H PRN for SHORTNESS OF BREATH Prescribed by: LING MARTINS on 07/18/22 1716 Azithromycin 500 Mg Tablet, 500 MG PO DAILY Prescribed by: LING MARTINS on 07/18/22 1636 Hydrocodone Bit/Acetaminophen 1 Each Tablet, 1 TAB PO Q4-6HR Prescribed by: LILIYA VASQUEZ on 01/20/19 1215 Lisinopril 10 Mg Tablet, 10 MG PO DAILY, (Reported) Oxycodone HCl/Acetaminophen 1 Each Tablet, 1 TAB PO Q6H PRN for PAIN-MODERATE Prescribed by: MARIO PERDOMO on 02/26/19 0258 Prednisone 20 Mg Tab, 40 MG PO DAILY Prescribed by: LING JARAMILLORT on 07/18/22 1636 Past Medical/Social/Family Hx Patient Social History Marrital Status: Employed/Student: employed Tobacco Use?: No Smokeless type used: Chew Use of E-Cig and/or Vaping dev: No Substance use?: No Alcohol Use?: No Immunizations Up To Date First/Initial COVID19 Vaccinat: Denies Current Status Primary Language: Swedish Preferred Spoken Language: Swedish Review of Systems Constitutional: see HPI, diaphoresis Respiratory: see HPI, dyspnea on exertion, short of breath Cardiovascular: chest pain (PLEURITIC,RT SIDE IN AXILLARY REGION) Focused Exam Lactate Level 07/26/22 13:00: Lactic Acid Level 1.76 Height, Weight, BMI Height: 5'7.00" Weight: 195lbs. 0.0oz. 88.032820wf; 33.00 BMI Method: Lactic Acid Level Laboratory Tests Test 07/26/22 13:00 Lactic Acid Level 1.76 MMOL/L (0.50-2.00) Exam Exam Patient acknowledged, consented, and participated in this virtual visit which was conducted using real time audio/video Vital Signs Date Time Temp Pulse Resp B/P (MAP) Pulse Ox O2 Delivery O2 Flow Rate FiO2 07/26/22 12:21 117 18 95 Room Air Height & Weight Height: 5'7.00" Weight: 195lbs. 0.0oz. 88.595328rn; 33.00 BMI Method: General Appearance: Anxious, Moderate Distress Other comments PE PER RN Results Lab Laboratory Tests 07/26/22 13:00 Assessment/Plan Assessment/Plan ABOVE Time spent with patient (mins): 32 CHERI ADAMS MD Jul 26, 2022 16:03
--- NOTE | 2022-07-26 16:13 | Consultation - Surgery ---
MELODIE RENO 07/26/22 1613: History of Present Illness History of Present Illness Patient Consulted On(ct/time) 07/26/22 15:57 Date Seen by Provider: Jul 26, 2022 Time Seen by Provider: 15:57 History of Present Illness Consulted requested per ER. Patient is a 51 year old male that presents to ICU from ER in [place] for worsening shortness of breath and right rib pain. He states that this began a month ago when his asthma and allergies flared up and put him into a coughing fit causing him to cough so hard his right side ribs became painful and extremely SOB. He went a week with these symptoms before coming into the ER in [place] on 07-18-22. He was found to have pneumonia and was given Azithromycin and prednisone of which he completed both courses of medication with little improvement. His pain continued after visiting the ER so he had a virtual office visit with his PCP Dr. Clemons who gave him toradol which did not improve pain significantly. He finished his azithromycin on 07-24-22. His pain and SOB continued so he saw Dr. Clemons again on 07-25-22 and was given hydrocodone/acetaminophen, and at the time Dr. Clemons thought his lungs sounded like they were improving. Today the pain and SOB became to much and he decided to come into the [place] ER to be seen. Upon arrival he received steroids and abx. CT of chest was taken showing large R pleural effusion with nodularity in pleura, along with patchy consolidation opacities in right lung. He states that his rib pain is a 5/10 and worse when coughing, does not radiate anywhere. He denies every having fever or chills during this last month. Today he denies any N/V/D, chest pain, headache, dizziness, hematuria, hemoptysis or hematemesis. No other complaints at this time. Allergies and Home Medications Allergies Coded Allergies: No Known Drug Allergies (Unverified , 01/17/19) Patient Home Medication List Albuterol Sulfate (Proventil Hfa) 6.7 Gm Hfa.aer.ad, 2 PUFF INH Q6H PRN for SHORTNESS OF BREATH Prescribed by: LING MARTINS on 07/18/22 1716 Azithromycin (Azithromycin) 500 Mg Tablet, 500 MG PO DAILY Prescribed by: LING MARTINS on 07/18/22 1636 Hydrocodone Bit/Acetaminophen (Lortab 5 Mg Tablet) 1 Each Tablet, 1 TAB PO Q4- 6HR Prescribed by: LILIYA VASQUEZ on 01/20/19 1215 Lisinopril (Lisinopril) 10 Mg Tablet, 10 MG PO DAILY, (Reported) Entered as Reported by: ROLLY BELTRAN on 01/17/19 1425 Oxycodone HCl/Acetaminophen (Percocet 10-325 mg Tablet) 1 Each Tablet, 1 TAB PO Q6H PRN for PAIN-MODERATE Prescribed by: MARIO PERDOMO on 02/26/19 0258 Prednisone (Prednisone) 20 Mg Tab, 40 MG PO DAILY Prescribed by: LING MARTINS on 07/18/22 1636 Past Tiaxssw-Jcyhpf-Yeixma Hx Patient Social History Smoking Status: Never a Smoker Type Used: Smokeless Tobacco (1 can a day) 2nd Hand Smoke Exposure: No Recent Hopitalizations: No Alcohol Use?: Yes Seasonal Allergies Seasonal Allergies: Yes Surgeries History of Surgeries: Yes (SHOULDER X2, KNEE X3) Surgeries: Orthopedic (3 shoulder surgeries (one right, two left) in high school ,3 knee surgeries all in high school) Respiratory History of Respiratory Disorde: Yes Respiratory Disorders: Asthma (Since childhood) Cardiovascular History of Cardiac Disorders: Yes Cardiac Disorders: Hypertension Neurological History of Neurological Disord: No Genitourinary History of Genitourinary Disor: No Gastrointestinal History of Gastrointestinal Di: No Musculoskeletal History of Musculoskeletal Dis: No Endocrine History of Endocrine Disorders: No HEENT History of HEENT Disorders: No Cancer History of Cancer: No Psychosocial History of Psychiatric Problem: No Integumentary History of Skin or Integumenta: No Blood Transfusions History of Blood Disorders: No (HX DVT AFTER KNEE SX WHEN 16) Family Medical History Significant Family History: Heart Disease (Father), Cancer (Paternal grandmother lung cancer), Diabetes (Father) Review of Systems-General Constitutional: No chills, No fever; weakness EENTM: No mouth pain, No throat pain Respiratory: cough, dyspnea on exertion; No hemoptysis, No phlegm; short of breath; No stridor Cardiovascular: No chest pain, No palpitations Gastrointestinal: No abdominal pain, No nausea, No vomiting Genitourinary: No dysuria, No hematuria Musculoskeletal: No back pain; other (Right rib pain) Skin: No change in color, No dryness Psychiatric/Neurological: Denies Headache, Denies Numbness, Denies Tremors Physical Exam-General Problems Physical Exam Vital Signs Vital Signs - First Documented 07/26/22 12:21 Pulse 117 Resp 18 Pulse Ox 95 O2 Delivery Room Air Capillary Refill : General Appearance: WD/WN, no apparent distress, obese Eyes: Bilateral Eye PERRL, Bilateral Eye EOMI HEENT: PERRL/EOMI; No scleral icterus (R), No scleral icterus (L) Neck: non-tender, supple Respiratory: chest non-tender, no accessory muscle use, decreased breath sounds (Right side ) Cardiovascular: regular rate, rhythm, no murmur Peripheral Pulses: 2+ Radial Pulses (R), 2+ Radial Pulses (L) Gastrointestinal: normal bowel sounds, soft, other (Right sided ribs 9-12 extremely tender to palpation) Rectal: deferred Back: no CVA tenderness; No vertebral tenderness Extremities: non-tender, no calf tenderness Neurologic/Psychiatric: alert, oriented x 3 Skin: normal color, warm/dry Data Review Labs Laboratory Tests 07/26/22 13:00: White Blood Count 24.7H, Red Blood Count 5.78H, Hemoglobin 16.7, Hematocrit 51, Mean Corpuscular Volume 88, Mean Corpuscular Hemoglobin 29, Mean Corpuscular Hemoglobin Concent 33, Red Cell Distribution Width 13.4, Platelet Count 376, Mean Platelet Volume 8.2L, Immature Granulocyte % (Auto) 3, Neutrophils (%) (Auto) 78H, Lymphocytes (%) (Auto) 6L, Monocytes (%) (Auto) 8, Eosinophils (%) (Auto) 4, Basophils (%) (Auto) 1, Neutrophils # (Auto) 19.3H, Lymphocytes # (Auto) 1.6, Monocytes # (Auto) 2.0H, Eosinophils # (Auto) 0.9H, Basophils # (Auto) 0.1, Immature Granulocyte # (Auto) 0.8H, Neutrophils % (Manual) 83, Lymp hocytes % (Manual) 6, Monocytes % (Manual) 9, Eosinophils % (Manual) 2, Prothrombin Time 12.3, INR Comment 0.9, Activated Partial Thromboplast Time 24, Sodium Level 134L, Potassium Level 4.2, Chloride Level 97L, Carbon Dioxide Level 24, Anion Gap 13, Blood Urea Nitrogen 17, Creatinine 0.90, Estimat Glomerular Filtration Rate 103, BUN/Creatinine Ratio 19, Glucose Level 134H, Lactic Acid Level 1.76, Calcium Level 9.4, Corrected Calcium 9.9, Total Bilirubin 0.5, Aspartate Amino Transf (AST/SGOT) 28, Alanine Aminotransferase (ALT/SGPT) 44, Alkaline Phosphatase 101, Troponin I < 0.30, Pro-B-Type Natriuretic Peptide 79.8, Total Protein 6.6, Albumin 3.4 Radiology Date of Exam:07/26/22 CT CHEST W EXAMINATION: CT chest with intravenous contrast. TECHNIQUE: Multiple contiguous axial images were obtained through the chest after the uneventful administration of intravenous contrast. All CT scans use one or more of the following dose optimizing techniques: automated exposure control, MA and/or KvP adjustment based on patient size and exam type or iterative reconstruction. HISTORY: Left-sided chest pain. Shortness of breath. COMPARISON: Chest radiograph performed earlier the same date. FINDINGS: The heart size is within normal limits. No pericardial effusion is present. There is no mediastinal, hilar, or axillary lymphadenopathy. Large right-sided pleural effusion is seen. There is suggestion of nodularity within the pleura, with one of the more prominent nodules measuring 2.6 x 1.2 cm in the upper right lung. No pleural effusion is seen on the left. No pneumothorax. Dependent and patchy opacities are seen in the right lung. No central endobronchial obstructing lesion. There is right to left mediastinal shift due to mass effect from the large pleural effusion. The osseous structures demonstrate no acute abnormalities. Limited views of the upper abdominal structures demonstrate no acute abnormalities. Both adrenal glands are unremarkable. IMPRESSION: 1. Large right-sided pleural effusion with findings concerning for malignancy given the nodules along the pleural surface. Recommend correlation with patient history and follow-up as indicated. Thoracentesis would also be of benefit to evaluate the fluid. 2. Patchy and consolidative opacities in the right lung. Findings may represent a combination of atelectasis or infection. Dictated by: Dictated on workstation # [id number] Dict: 07/26/22 1333 Trans: 07/26/22 1346 [facility] [id number] Interpreted by: MARCO JEFFERSON DO Electronically signed by: MARCO JEFFERSON DO 07/26/22 1346 Date of Exam:07/26/22 CHEST 1 VIEW AP/PA ONLY EXAMINATION: Chest 1 view HISTORY: Shortness of breath. COMPARISON: 07/18/2022. FINDINGS: Interval marked increase in a moderate to large right-sided pleural effusion with increasing right basilar opacities. Stable cardiac silhouette. No pneumothorax. IMPRESSION: 1. Increasing moderate to large right-sided pleural effusion with increasing right basilar opacities. Dictated by: Dictated on workstation # [id number] Dict: 07/26/22 1245 Trans: 07/26/22 1249 [facility] [id number] Interpreted by: MARCO JEFFERSON DO Electronically signed by: MARCO JEFFERSON DO 07/26/22 1249 Assessment/Plan Assessment/Plan Assessment/Plan Right sided plural effusion with nodularity- Per CT Right sided rib pain/Dyspnea Possible pneumonia Plan Discuss possible thoracentesis with patient/ Risks&Benefits Pain management Continue steroids, Abx, IV fluids DVT prophylaxis-hold until thoracentesis is done WALTER FRANCOIS DO 07/26/22 1711: History of Present Illness History of Present Illness Time Seen by Provider: 16:41 History of Present Illness Surgery asked to consult regarding pleural effusion. HPI per E-ICU: He is a 51-year-old male with past medical history of hypertension and recently diagnosed with a pneumonia and he was treated and released on 07/18/2022 with azithromycin. Today he came with a complaint of for right-sided chest pain shortness of breath and cough without much sputum production. His right side of the chest is hurting so much that he thought he may have a broken rib. He was using heating pads at home. He denies any fever but he had some sweating's at night. He denies any smoking but chews tobacco. No history of drug abuse present. No known history of COPD, asthma. No history of drug abuse. Today he went to [place] emergency room where he was evaluated and found to have a marked leukocytosis, and chest x-ray showed right pleural effusion large, hence they did a CT scan of the chest which showed right-sided large pleural effusion with underlying atelectasis. Radiologist also reported pleural nodularity. He is subsequently admitted to via [facility] intensive care unit where I have interviewed via video visit. Also discussed with the patient's . When I spoke to pt he said his breathing was ok, still with moderate pain on the right. Allergies and Home Medications Allergies Coded Allergies: No Known Drug Allergies (Unverified , 01/17/19) Patient Home Medication List Home Medication List Reviewed: Yes Albuterol Sulfate (Proventil Hfa) 6.7 Gm Hfa.aer.ad, 2 PUFF INH Q6H PRN for SHORTNESS OF BREATH Prescribed by: LING MARTINS on 07/18/22 1716 Azithromycin (Azithromycin) 500 Mg Tablet, 500 MG PO DAILY Prescribed by: LING MARTINS on 07/18/22 1636 Hydrocodone Bit/Acetaminophen (Lortab 5 Mg Tablet) 1 Each Tablet, 1 TAB PO Q4- 6HR Prescribed by: LILIYA VASQUEZ on 01/20/19 1215 Lisinopril (Lisinopril) 10 Mg Tablet, 10 MG PO DAILY, (Reported) Entered as Reported by: ROLLY BELTRAN on 01/17/19 1425 Oxycodone HCl/Acetaminophen (Percocet 10-325 mg Tablet) 1 Each Tablet, 1 TAB PO Q6H PRN for PAIN-MODERATE Prescribed by: MARIO PERDOMO on 02/26/19 0258 Prednisone (Prednisone) 20 Mg Tab, 40 MG PO DAILY Prescribed by: LING MARTINS on 07/18/22 1636 Past Rywjomc-Rrqwup-Vbmbbu Hx Patient Social History Smoking Status: Never a Smoker Type Used: Smokeless Tobacco (1 can a day) Alcohol Use?: Yes (2-3 beers a month) Surgeries History of Surgeries: Yes Surgeries: Orthopedic (3 shoulder surgeries (one right, two left) in high school ,3 knee surgeries all in high school) Respiratory History of Respiratory Disorde: Yes Respiratory Disorders: Asthma (Since childhood) Cardiovascular History of Cardiac Disorders: Yes Cardiac Disorders: Deep Vein Thrombosis (after surgery when he was 16) Neurological History of Neurological Disord: No Reproductive System Hx Reproductive Disorders: No Genitourinary History of Genitourinary Disor: No Gastrointestinal History of Gastrointestinal Di: No Musculoskeletal History of Musculoskeletal Dis: No Endocrine History of Endocrine Disorders: No HEENT History of HEENT Disorders: No Loss of Vision: Denies Hearing Impairment: Denies Cancer History of Cancer: No Psychosocial History of Psychiatric Problem: No Integumentary History of Skin or Integumenta: No Family Medical History Significant Family History: Heart Disease (Father), Cancer (Paternal grandmother lung cancer), Diabetes (Father) Review of Systems-General Constitutional: No chills, No fever; weakness EENTM: No blurred vision, No mouth pain, No throat pain Respiratory: cough, dyspnea on exertion; No hemoptysis, No phlegm; short of breath; No stridor Cardiovascular: No chest pain, No palpitations Gastrointestinal: No abdominal pain, No nausea, No vomiting Genitourinary: No dysuria, No hematuria Musculoskeletal: No back pain, No joint pain; other (Right rib pain) Skin: No change in color, No dryness Psychiatric/Neurological: Denies Headache, Denies Numbness, Denies Tremors Physical Exam-General Problems Physical Exam General Appearance: WD/WN, no apparent distress, obese Eyes: Bilateral Eye PERRL, Bilateral Eye EOMI HEENT: pharynx normal; No scleral icterus (R), No scleral icterus (L) Neck: non-tender, supple Respiratory: chest non-tender, no respiratory distress, no accessory muscle us e, decreased breath sounds (Right side - really dont hear any), other (dullness to percussion, entire right lung) Cardiovascular: no murmur, tachycardia Peripheral Pulses: 2+ Radial Pulses (R), 2+ Radial Pulses (L) Gastrointestinal: normal bowel sounds, soft, no organomegaly, hernia (small umbilical), other (Right sided ribs 9-12 extremely tender to palpation) Rectal: deferred Back: CVA tenderness (R); No vertebral tenderness Extremities: non-tender, no pedal edema, no calf tenderness Neurologic/Psychiatric: 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 Plan to do Thoracentesis tomorrow in am and send fluid for Culture and Cytology. This should also help with his breathing and oxygen saturation. Supervisory-Addendum Brief Verification & Attestation Participated in pt care: history, MDM, physical Personally performed: exam, history, MDM, supervision of care Care discussed with: Medical Student Procedures: n/a Verification and Attestation of Medical Student E/M Service A medical student performed and documented this service. I then reviewed and verified all information documented by the medical student and made modifications to such information, when appropriate. I personally performed a physical exam, medical decision making and then discussed any differences betw een the notes and made revisions as necessary to create one note. aWlter Francois , 07/26/22 , 17:21 MELODIE RENO Jul 26, 2022 16:13 WALTER FRANCOIS DO Jul 26, 2022 17:11
[2022-07-26] MEDS ORDERED: VANCOMYCIN 1 GM/NS 250 ML IVPB IV NR ×2 (16:15)
[2022-07-26] MEDS: HYDROmorphone 2 MG/ML VIAL (DILAUDID) IV PRN ×4 (16:17→23:38)
[2022-07-26] MEDS: ENOXAPARIN 40 MG/0.4 ML (LOVENOX) SYR SC SCH (16:58)
[2022-07-26] MEDS: DOCUSATE SODIUM 100 MG (COLACE) CAP PO SCH (19:57)
[2022-07-26] MEDS: PIPERACILLIN SODIUM/TAZOBACTAM 4.5 GM in NS (IVPB) 100 ML IV SCH (20:44)
[2022-07-26] MEDS: MELATONIN 3 MG TABLET PO PRN (20:45)
[2022-07-26] MEDS ORDERED: DOCUSATE SODIUM 100 MG (COLACE) CAP PO SCH (21:00)
[2022-07-26] MEDS: RT-ALBUTEROL SULF 2.5 MG/3 ML PRE-MIX VIAL INH SCH (21:25)
[2022-07-27 04:19] LABS: BASOPHILS # (AUTO) 0.1 10^3/uL (0.0-0.1); BASOPHILS % (AUTO) 0 % (0-10); EOSINOPHILS % (AUTO) 0 % (0-10); HEMATOCRIT 45 % (40-54); HEMOGLOBIN 14.5 g/dL (13.3-17.7); LYMPHOCYTES # (AUTO) 0.6 10^3/uL (1.0-4.0); LYMPHOCYTES % (AUTO) 3 % (12-44); MEAN CORPUSCULAR HEMOGLOBIN 29 pg (25-34); MEAN CORPUSCULAR HGB CONC 32 g/dL (32-36); MEAN CORPUSCULAR VOLUME 90 fL (80-99); MEAN PLATELET VOLUME 8.6 fL (9.0-12.2); MONOCYTES # (AUTO) 1.2 10^3/uL (0.0-1.0); MONOCYTES % (AUTO) 5 % (0-12); NEUTROPHILS # (AUTO) 20.5 10^3/uL (1.8-7.8); NEUTROPHILS % (AUTO) 89 % (42-75); PLATELET COUNT 313 10^3/uL (130-400); WHITE BLOOD COUNT 22.9 10^3/uL (4.3-11.0)
[2022-07-27] MEDS: PIPERACILLIN SODIUM/TAZOBACTAM 4.5 GM in NS (IVPB) 100 ML IV SCH ×3 (04:21→19:51)
[2022-07-27] MEDS: ACETAMINOPHEN 325 MG TABLET PO PRN ×2 (04:22→14:37)
[2022-07-27] MEDS: VANCOMYCIN 1500MG/300ML PREMIX IV SCH ×2 (04:22→17:21)
[2022-07-27 04:26] LABS: ALBUMIN 3.3 GM/DL (3.2-4.5); POTASSIUM 4.5 MMOL/L (3.6-5.0)
[2022-07-27 04:27] LABS: CALCIUM 8.8 MG/DL (8.5-10.1)
[2022-07-27 04:29] LABS: TOTAL PROTEIN 6.2 GM/DL (6.4-8.2)
[2022-07-27 04:30] LABS: BILIRUBIN,TOTAL 0.3 MG/DL (0.1-1.0)
[2022-07-27 04:32] LABS: CREATININE SERUM 0.87 MG/DL (0.60-1.30)
[2022-07-27 04:35] LABS: MAGNESIUM 2.3 MG/DL (1.6-2.4)
--- NOTE | 2022-07-27 05:11 | Progress Note - Surgery ---
MELODIE RENO 07/27/22 0511: Subjective Date Seen by a Provider: Jul 27, 2022 Time Seen by a Provider: 05:05 Subjective/Events-last exam Patient is laying in bed on his left side this morning in mild discomfort. He states his rib/back pain is unchanged from yesterday at a 5/10 this morning. He had multiple coughing fits throughout the night mostly when he got up to use the restroom that did cause his pain to become more severe at a 10/10 but subsided once he got back into bed. He has been receiving his breathing treatments, and was put on NC at 5L due to some hypoxia he was having last night. He feels his pain meds are helping manage pain. He denies any N/V/D, dyuria, chest pain, or hemoptysis. No other complaints at this time. Review of Systems General: No Chills; Night Sweats HEENT: No Head Aches, No Sore Throat Pulmonary: Dyspnea, Cough Cardiovascular: No: Chest Pain, Edema Gastrointestinal: No: Nausea, Vomiting, Abdominal Pain Genitourinary: No Dysuria, No Hematuria Musculoskeletal: back pain; No: leg pain Neurological: No: Weakness, Numbness Focused Exam Lactate Level 07/26/22 13:00: Lactic Acid Level 1.76 Objective Exam Vital Signs Date Time Temp Pulse Resp B/P (MAP) Pulse Ox O2 Delivery O2 Flow Rate FiO2 07/27/22 03:12 36.3 07/27/22 03:00 93 15 120/77 (91) 95 Nasal Cannula 5.00 07/27/22 02:00 94 17 130/64 (86) 93 Nasal Cannula 5.00 07/27/22 01:00 92 16 116/75 (89) 94 Nasal Cannula 5.00 07/27/22 00:38 90 07/27/22 00:08 35.9 07/27/22 00:00 98 22 127/85 (99) 92 Nasal Cannula 5.00 07/26/22 23:35 93 Nasal Cannula 5.00 07/26/22 23:00 98 20 135/88 (104) 93 Nasal Cannula 5.00 07/26/22 22:00 101 22 140/80 (100) 92 Nasal Cannula 5.00 07/26/22 21:25 91 Nasal Cannula 6.00 07/26/22 21:00 109 16 131/85 (100) 93 Nasal Cannula 5.00 07/26/22 20:32 Nasal Cannula 5.00 07/26/22 20:00 102 22 118/79 (92) 93 Nasal Cannula 2.00 07/26/22 19:41 36.1 07/26/22 19:25 Nasal Cannula 2.00 07/26/22 19:00 104 14 139/79 (99) 91 Nasal Cannula 2.00 07/26/22 18:50 108 07/26/22 16:17 117 94 07/26/22 16:05 93 Nasal Cannula 2.00 07/26/22 16:05 36.1 Nasal Cannula 2.00 07/26/22 16:00 113 23 131/91 (104) 94 Room Air 07/26/22 12:21 117 18 95 Room Air I & O 07/27/22 07:00 Intake Total 550 ml Balance 550 ml Capillary Refill : General Appearance: Anxious, Mild Distress, Obese HEENT: PERRL/EOMI, Moist Mucous Membranes Neck: Non Tender, Supple Respiratory: Chest Non Tender, No Accessory Muscle Use, Crackles, Decreased Breath Sounds (Right side) Cardiovascular: Regular Rate, Rhythm, No Murmur Peripheral Pulses: 2+ Radial Pulses (R), 2+ Radial Pulses (L) Gastrointestinal: non tender, soft, other (Right sided ribs 9-12 extremely tender to palpation) Extremity: No Calf Tenderness, No Pedal Edema Neurologic/Psychiatric: Alert, Oriented x3 Skin: Warm/Dry; No Ecchymosis Results Lab Laboratory Tests 07/26/22 13:00: White Blood Count 24.7H, Red Blood Count 5.78H, Hemoglobin 16.7, Hematocrit 51, Mean Corpuscular Volume 88, Mean Corpuscular Hemoglobin 29, Mean Corpuscular Hemoglobin Concent 33, Red Cell Distribution Width 13.4, Platelet Count 376, Mean Platelet Volume 8.2L, Immature Granulocyte % (Auto) 3, Neutrophils (%) (Auto) 78H, Lymphocytes (%) (Auto) 6L, Monocytes (%) (Auto) 8, Eosinophils (%) (Auto) 4, Basophils (%) (Auto) 1, Neutrophils # (Auto) 19.3H, Lymphocytes # (Auto) 1.6, Monocytes # (Auto) 2.0H, Eosinophils # (Auto) 0.9H, Basophils # (Auto) 0.1, Immature Granulocyte # (Auto) 0.8H, Neutrophils % (Manual) 83, Lymphocytes % (Manual) 6, Monocytes % (Manual) 9, Eosinophils % (Manual) 2, Prothrombin Time 12.3, INR Comment 0.9, Activated Partial Thromboplast Time 24, Sodium Level 134L, Potassium Level 4.2, Chloride Level 97L, Carbon Dioxide Level 24, Anion Gap 13, Blood Urea Nitrogen 17, Creatinine 0.90, Estimat Glomerular Filtration Rate 103, BUN/Creatinine Ratio 19, Glucose Level 134H, Lactic Acid Level 1.76, Calcium Level 9.4, Corrected Calcium 9.9, Total Bilirubin 0.5, Aspartate Amino Transf (AST/SGOT) 28, Alanine Aminotransferase (ALT/SGPT) 44, Alkaline Phosphatase 101, Troponin I < 0.30, Pro-B-Type Natriuretic Peptide 79.8, Total Protein 6.6, Albumin 3.4 07/26/22 15:49: Bedside Blood Gas pH (LAB) 7.460H, Bedside Blood Gas pCO2 (LAB) 34.9L, Bedside Blood Gas pO2 (LAB) 92, Bedside Blood Gas HCO3 (LAB) 24.8, POC Blood Gas Total CO2 Calc 26, Bedside Bl Gas O2 Saturation (Calc) 98, Bedside Arterial Blood Base Excess 1 07/26/22 16:05: Lactate Dehydrogenase 285H 07/27/22 04:06: White Blood Count 22.9H, Red Blood Count 5.04, Hemoglobin 14.5, Hematocrit 45, Mean Corpuscular Volume 90, Mean Corpuscular Hemoglobin 29, Mean Corpuscular Hemoglobin Concent 32, Red Cell Distribution Width 13.2, Platelet Count 313, Mean Platelet Volume 8.6L, Immature Granulocyte % (Auto) 2, Neutrophils (%) (Auto) 89H, Lymphocytes (%) (Auto) 3L, Monocytes (%) (Auto) 5, Eosinophils (%) (Auto) 0, Basophils (%) (Auto) 0, Neutrophils # (Auto) 20.5H, Lymphocytes # (Auto) 0.6L, Monocytes # (Auto) 1.2H, Eosinophils # (Auto) 0.0, Basophils # (Auto) 0.1, Immature Granulocyte # (Auto) 0.6H, Sodium Level 135, Potassium Level 4.5, Chloride Level 102, Carbon Dioxide Level 23, Anion Gap 10, Blood Urea Nitrogen 16, Creatinine 0.87, Estimat Glomerular Filtration Rate 104, BUN/Creatinine Ratio 18, Glucose Level 170H, Calcium Level 8.8, Corrected Calcium 9.4, Total Bilirubin 0.3, Aspartate Amino Transf (AST/SGOT) 21, Alanine Aminotransferase (ALT/SGPT) 51, Alkaline Phosphatase 75, Total Protein 6.2L, Albumin 3.3, Phosphorus Level 3.0, Magnesium Level 2.3 Assessment/Plan Assessment/Plan Assessment/Plan Right sided plural effusion with nodularity- Per CT Right sided rib pain/Dyspnea/Hypoxia Acute respirotry distress/Pneumonia Plan Pain management Continue steroids, Abx, IV fluids DVT prophylaxis-hold until thoracentesis is done Plan thoracentesis today NIRAV JEFFERY DO 07/27/22 1216: Subjective Time Seen by a Provider: 11:58 Subjective/Events-last exam Pt seen and examined, no new changes and he thinks breathing is about the same. He did require an increase in O2 per NC last night. Review of Systems General: No Chills; Night Sweats Pulmonary: Dyspnea, Cough Cardiovascular: No: Chest Pain Gastrointestinal: No: Nausea, Vomiting, Abdominal Pain Objective Exam General Appearance: Anxious, Mild Distress, Obese HEENT: PERRL/EOMI, Moist Mucous Membranes Respiratory: Chest Non Tender, Crackles, Decreased Breath Sounds (Right side) Cardiovascular: Regular Rate, Rhythm, No Murmur Gastrointestinal: non tender, soft, other (Right sided ribs 9-12 extremely tender to palpation) Extremity: No Calf Tenderness, No Pedal Edema Neurologic/Psychiatric: Alert Assessment/Plan Assessment/Plan Assessment/Plan Right sided plural effusion with nodularity- Per CT Right sided rib pain/Dyspnea/Hypoxia Acute respirotry distress/Pneumonia Plan Pain management Continue steroids, Abx, IV fluids DVT prophylaxis-hold until thoracentesis is done Plan thoracentesis today Supervisory-Addendum Brief Verification & Attestation Participated in pt care: history, MDM, physical Personally performed: exam, history, MDM, supervision of care Care discussed with: Medical Student Procedures: n/a Verification and Attestation of Medical Student E/M Service A medical student performed and documented this service. I then reviewed and verified all information documented by the medical student and made modifications to such information, when appropriate. I personally performed a physical exam, medical decision making and then discussed any differences between the notes and made revisions as necessary to create one note. Nirav Jeffery , 07/27/22 , 12:15 MELODIE RENO Jul 27, 2022 05:11 NIRAV JEFFERY DO Jul 27, 2022 12:16
[2022-07-27] MEDS: HYDROmorphone 2 MG/ML VIAL (DILAUDID) IV PRN ×3 (05:26→11:23)
[2022-07-27] MEDS ORDERED: KCL 20 MEQ TAB (K-DUR) PO SCH ×2 (06:00)
[2022-07-27] MEDS ORDERED: POTASSIUM CL 10MEQ/50ML IVPB 50 ML IV SCH ×2 (06:00)
[2022-07-27] MEDS ORDERED: MAGNESIUM 1 GM/100 ML IVPB 100 ML IV SCH ×2 (06:00)
--- NOTE | 2022-07-27 06:26 | Progress Note - Hospitalist ---
Subjective HPI/CC On Admission Date Seen by Provider: Jul 27, 2022 Time Seen by Provider: 12:00 CC: Acute respiratory failure with right pleural effusion with possible masses HPI: This is a 51yoWM clinic patient of Dr Clemons who was dx with PNA last week and finished his abx but saw Dr Clemons in office for right rib pain due to cough induced rib bruise yesterday and he thought he was on the mend but presented to the ER due to worsened dyspnea and was found to have right sided pleural effusion and possible masses suspicious for neoplasm versus infection. He is a lifetime non-smoker. CT IMPRESSION: 1. Large right-sided pleural effusion with findings concerning for malignancy given the nodules along the pleural surface. Recommend correlation with patient history and follow-up as indicated. Thoracentesis would also be of benefit to evaluate the fluid. 2. Patchy and consolidative opacities in the right lung. Findings may represent a combination of atelectasis or infection. Subjective/Events-last exam Improved Moved to h floor after thoracentesis Pain is an issue but pain meds helping Pleural fluid was bloody so presumed malignant effusion Will ambulate Review of Systems General: Fatigue, Malaise Pulmonary: Dyspnea Focused Exam Lactate Level 07/26/22 13:00: Lactic Acid Level 1.76 Objective Exam Vital Signs Vital Signs Date Time Temp Pulse Resp B/P (MAP) Pulse Ox O2 Delivery O2 Flow Rate FiO2 07/28/22 05:07 93 Nasal Cannula 6.00 07/28/22 04:00 35.9 83 18 120/72 (88) Capillary Refill : General Appearance: No Apparent Distress, WD/WN, Chronically ill Respiratory: No Accessory Muscle Use, No Respiratory Distress, Decreased Breath Sounds Cardiovascular: Regular Rate, Rhythm Neurologic/Psychiatric: Alert, Oriented x3, No Motor/Sensory Deficits, Normal Mood/Affect Results/Procedures Lab Patient resulted labs reviewed. Assessment/Plan Assessment and Plan Assess & Plan/Chief Complaint Assessment: Acute respiratory failure-improved Recurrent PNA failed outpatient treatment Right sided large pleural effusion s/p thoracentesis removing bloody fluid so presumed malignant effusion Hypoxia Masses on CT scan? Plan: IV abx Move to floor O2 Dr Jeffery consult Thoracentesis ADRIANA KEMP DO Jul 27, 2022 06:26
[2022-07-27] MEDS: DOCUSATE SODIUM 100 MG (COLACE) CAP PO SCH ×2 (08:35→19:51)
--- NOTE | 2022-07-27 09:57 | Tele-ICU Progress Note ---
Progress Note video rounds completed 51 y/o male admitted for PNA and a pleural effusion On zosyn and vanc WBC downtrending from 24 to 22,000 Awaiting thoracentensis PE: comfortable sitting up in bed All VSS IMP PNA, pleural effusion PLAN: awaiting thoracentesis Time spent on evaluation: 15 minutes Focused Exam Lactate Level 07/26/22 13:00: Lactic Acid Level 1.76 Height, Weight, BMI Height: 5'7.00" Weight: 195lbs. 0.0oz. [id number]; 34.86 BMI Method: Labs Laboratory Tests 07/26/22 13:00 07/27/22 04:06 Results Results/Procedures Labs Laboratory Tests 07/26/22 13:00 07/27/22 04:06 Patient resulted labs reviewed. Results Labs Labs Laboratory Tests 07/26/22 13:00: White Blood Count 24.7H, Red Blood Count 5.78H, Hemoglobin 16.7, Hematocrit 51, Mean Corpuscular Volume 88, Mean Corpuscular Hemoglobin 29, Mean Corpuscular Hemoglobin Concent 33, Red Cell Distribution Width 13.4, Platelet Count 376, Mean Platelet Volume 8.2L, Immature Granulocyte % (Auto) 3, Neutrophils (%) (Auto) 78H, Lymphocytes (%) (Auto) 6L, Monocytes (%) (Auto) 8, Eosinophils (%) (Auto) 4, Basophils (%) (Auto) 1, Neutrophils # (Auto) 19.3H, Lymphocytes # (Auto) 1.6, Monocytes # (Auto) 2.0H, Eosinophils # (Auto) 0.9H, Basophils # (Auto) 0.1, Immature Granulocyte # (Auto) 0.8H, Neutrophils % (Manual) 83, Lymphocytes % (Manual) 6, Monocytes % (Manual) 9, Eosinophils % (Manual) 2, Prothrombin Time 12.3, INR Comment 0.9, Activated Partial Thromboplast Time 24, Sodium Level 134L, Potassium Level 4.2, Chloride Level 97L, Carbon Dioxide Level 24, Anion Gap 13, Blood Urea Nitrogen 17, Creatinine 0.90, Estimat Glomerular Filtration Rate 103, BUN/Creatinine Ratio 19, Glucose Level 134H, Lactic Acid Level 1.76, Calcium Level 9.4, Corrected Calcium 9.9, Total Bilirubin 0.5, Aspartate Amino Transf (AST/SGOT) 28, Alanine Aminotransferase (ALT/SGPT) 44, Alkaline Phosphatase 101, Troponin I < 0.30, Pro-B-Type Natriuretic Peptide 79.8, Total Protein 6.6, Albumin 3.4 07/26/22 15:49: Bedside Blood Gas pH (LAB) 7.460H, Bedside Blood Gas pCO2 (LAB) 34.9L, Bedside Blood Gas pO2 (LAB) 92, Bedside Blood Gas HCO3 (LAB) 24.8, POC Blood Gas Total CO2 Calc 26, Bedside Bl Gas O2 Saturation (Calc) 98, Bedside Arterial Blood Base Excess 1 07/26/22 16:05: Lactate Dehydrogenase 285H 07/27/22 04:06: White Blood Count 22.9H, Red Blood Count 5.04, Hemoglobin 14.5, Hematocrit 45, Mean Corpuscular Volume 90, Mean Corpuscular Hemoglobin 29, Mean Corpuscular Hemoglobin Concent 32, Red Cell Distribution Width 13.2, Platelet Count 313, Mean Platelet Volume 8.6L, Immature Granulocyte % (Auto) 2, Neutrophils (%) (Auto) 89H, Lymphocytes (%) (Auto) 3L, Monocytes (%) (Auto) 5, Eosinophils (%) (Auto) 0, Basophils (%) (Auto) 0, Neutrophils # (Auto) 20.5H, Lymphocytes # (Auto) 0.6L, Monocytes # (Auto) 1.2H, Eosinophils # (Auto) 0.0, Basophils # (Au to) 0.1, Immature Granulocyte # (Auto) 0.6H, Sodium Level 135, Potassium Level 4.5, Chloride Level 102, Carbon Dioxide Level 23, Anion Gap 10, Blood Urea Nitrogen 16, Creatinine 0.87, Estimat Glomerular Filtration Rate 104, BUN/Creatinine Ratio 18, Glucose Level 170H, Calcium Level 8.8, Corrected Calcium 9.4, Total Bilirubin 0.3, Aspartate Amino Transf (AST/SGOT) 21, Alanine Aminotransferase (ALT/SGPT) 51, Alkaline Phosphatase 75, Total Protein 6.2L, Albumin 3.3, Phosphorus Level 3.0, Magnesium Level 2.3 ALHAJI PERRY MD Jul 27, 2022 09:57
[2022-07-27] MEDS: RT-ALBUTEROL SULF 2.5 MG/3 ML PRE-MIX VIAL INH SCH ×2 (10:20→23:04)
--- NOTE | 2022-07-27 12:13 | Progress Note-Post Operative ---
Post-Operative Progess Note Surgeon (s)/Rug Layer (s) Surgeon WALTER FRANCOIS DO Rug Layer: none Pre-Operative Diagnosis Pleural effusion Post-Operative Diagnosis same pending path Procedure & Operative Findings Date of Procedure 07/27/22 Procedure Performed/Findings Procedural Note: [Right] Thoracentesis A time out was performed and the chest x-ray was reviewed, the appropriate side was confirmed and marked. The patient was prepped and draped in a sterile manner using chlorhexidine scrub after the appropriate level was percussed and confirmed by ultrasound. 1% lidocaine was used to anesthetize the skin, subcutaneous tissue, superior aspect of the rib periosteum and parietal pleura. . A #11 blade scalpel was used to abigail the skin at the insertion site; which was around 9 or 10th rib. The [id number] needle was then introduced through the skin incision into the pleural space using negative aspiration pressure and got an immediate return of a maroon-reddish fluid. The thoracentesis catheter was then threaded without difficulty. Approximately 2200 ml of dark blood tinged fluid was removed without difficulty. The catheter was then removed. No immediate complications were noted during the procedure. A post-procedure chest x-ray is pending at the time of this note. The fluid will be sent for studies. Estimated blood loss is scant. Anesthesia Type local lidocaine Estimated Blood Loss Estimated blood loss (mL): scant Specimens/Packing Specimens Removed 2200ml of pleural fluid WALTER FRANCOIS DO Jul 27, 2022 12:13
--- NOTE | 2022-07-27 12:47 | Diagnostic Imaging Report ---
Indication: Postthoracentesis Right pleural fluid has been evacuated. There is no pneumothorax and there is marked improvements in right infrahilar and basilar atelectasis with only trace atelectasis at follow-up. Left chest stable and negative. Impression: Successful evacuation of right pleural fluid and near complete reexpansion of the right lung base with no pneumothorax or adverse interval development. Dictated by: Dictated on workstation # [id number]
[2022-07-27 12:57] LABS: BODY FLUID RBC COUNT 0.131 10^6/uL; BODY FLUID WBC TOTAL COUNT 1.676 10^3/uL
[2022-07-27 13:18] LABS: GLUCOSE,BODY FLUID 124 MG/DL; TOTAL PROTEIN,BODY FLUID 3.8 G/DL
[2022-07-27 13:47] VITALS: BP 118/85
[2022-07-27 14:12] LABS: BODY FLUID COLOR RED; BODY FLUID SOURCE PLEURAL
[2022-07-27 14:13] LABS: BODY FLUID APPEARENCE MKD BLDY
[2022-07-27 16:04] VITALS: BP 123/80
[2022-07-27 17:08] VITALS: BP 123/83
[2022-07-27 19:50] VITALS: BP 129/80
[2022-07-27 23:11] VITALS: BP 124/79
[2022-07-28 04:00] VITALS: BP 120/72
[2022-07-28] MEDS: PIPERACILLIN SODIUM/TAZOBACTAM 4.5 GM in NS (IVPB) 100 ML IV SCH ×3 (04:27→19:44)
[2022-07-28] MEDS: VANCOMYCIN 1500MG/300ML PREMIX IV SCH ×2 (04:28→17:14)
[2022-07-28] MEDS: RT-ALBUTEROL SULF 2.5 MG/3 ML PRE-MIX VIAL INH PRN (05:07)
[2022-07-28 06:00] LABS: BASOPHILS % (AUTO) 0 % (0-10); EOSINOPHILS # (AUTO) 0.8 10^3/uL (0.0-0.3); EOSINOPHILS % (AUTO) 4 % (0-10); HEMATOCRIT 42 % (40-54); HEMOGLOBIN 13.3 g/dL (13.3-17.7); LYMPHOCYTES # (AUTO) 1.4 10^3/uL (1.0-4.0); LYMPHOCYTES % (AUTO) 7 % (12-44); MEAN CORPUSCULAR HEMOGLOBIN 29 pg (25-34); MEAN CORPUSCULAR HGB CONC 32 g/dL (32-36); MEAN CORPUSCULAR VOLUME 91 fL (80-99); MEAN PLATELET VOLUME 8.5 fL (9.0-12.2); MONOCYTES # (AUTO) 1.9 10^3/uL (0.0-1.0); MONOCYTES % (AUTO) 10 % (0-12); NEUTROPHILS # (AUTO) 14.8 10^3/uL (1.8-7.8); NEUTROPHILS % (AUTO) 77 % (42-75); PLATELET COUNT 314 10^3/uL (130-400); WHITE BLOOD COUNT 19.2 10^3/uL (4.3-11.0)
[2022-07-28 06:22] LABS: ALBUMIN 2.9 GM/DL (3.2-4.5); BILIRUBIN,TOTAL 0.3 MG/DL (0.1-1.0); CALCIUM 8.5 MG/DL (8.5-10.1); CREATININE SERUM 0.83 MG/DL (0.60-1.30); POTASSIUM 3.7 MMOL/L (3.6-5.0); TOTAL PROTEIN 5.4 GM/DL (6.4-8.2)
--- NOTE | 2022-07-28 06:37 | Progress Note - Surgery ---
MELODIE RENO 07/28/22 0636: Subjective Date Seen by a Provider: Jul 28, 2022 Time Seen by a Provider: 06:31 Subjective/Events-last exam Patient is laying in bed in no acute distress this morning. He reports his pain is worse than yesterday at a 6/10 on his right side on his ribs where the pain has been, worse when he coughs or hiccups. He does feel like he is breathing easier and has had a improvement in his dyspnea, is currently on 4L NC. He has been able to get up and use restroom and move about his room. He says he plans on walking the halls today. He is eating well. Had a BM yesterday, and is voiding without problem. He denies any chest pain, N/V/D, headache, dysuria, or abdominal pain. No other complaints at this time. Review of Systems General: No Chills, No Night Sweats; Fatigue HEENT: No Head Aches, No Sore Throat Pulmonary: Dyspnea, Cough Cardiovascular: No: Chest Pain, Edema Gastrointestinal: No: Nausea, Vomiting, Abdominal Pain Genitourinary: No Dysuria, No Hematuria Musculoskeletal: No: arm pain, back pain Neurological: No: Weakness, Numbness Focused Exam Lactate Level 07/26/22 13:00: Lactic Acid Level 1.76 Objective Exam Vital Signs Date Time Temp Pulse Resp B/P (MAP) Pulse Ox O2 Delivery O2 Flow Rate FiO2 07/28/22 05:07 93 Nasal Cannula 6.00 07/28/22 04:00 35.9 83 18 120/72 (88) 96 Nasal Cannula 5.00 07/27/22 23:11 36.3 92 20 124/79 (94) 96 Nasal Cannula 5.00 07/27/22 20:00 Nasal Cannula 5.00 07/27/22 19:50 36.3 102 20 129/80 (96) 92 Room Air 07/27/22 17:08 95 20 123/83 (96) Nasal Cannula 5.00 07/27/22 16:04 36.5 115 20 123/80 (94) 95 Nasal Cannula 5.00 07/27/22 13:47 36.4 88 20 118/85 (96) 96 Nasal Cannula 5.00 07/27/22 12:00 102 26 125/70 (82) 92 Nasal Cannula 5.00 07/27/22 11:20 36.6 07/27/22 11:00 86 16 114/73 (84) 91 Nasal Cannula 5.00 07/27/22 10:00 88 30 130/62 (91) 91 Nasal Cannula 5.00 07/27/22 09:00 85 14 98/56 (73) 93 Nasal Cannula 5.00 07/27/22 08:00 96 Nasal Cannula 5.00 07/27/22 08:00 81 22 136/74 (87) 94 Nasal Cannula 5.00 07/27/22 07:35 36.4 07/27/22 07:00 91 12 139/83 (104) 92 Nasal Cannula 5.00 07/27/22 07:00 93 I & O 07/28/22 06:59 Intake Total 1925 ml Balance 1925 ml Capillary Refill : General Appearance: No Apparent Distress, WD/WN HEENT: PERRL/EOMI, Moist Mucous Membranes Neck: Non Tender, Supple Respiratory: Chest Non Tender, No Accessory Muscle Use, No Respiratory Distress, Decreased Breath Sounds (Right lower lobe, remainder is CTA), Other (Right sided rib pain at levels of T9-T10, Sight of throacentesis is covered in no signs of active bleeding) Cardiovascular: Regular Rate, Rhythm, No Murmur Peripheral Pulses: 2+ Radial Pulses (R), 2+ Radial Pulses (L) Gastrointestinal: non tender, soft, other (Right sided ribs 9-12 extremely tender to palpation) Extremity: No Calf Tenderness, No Pedal Edema Neurologic/Psychiatric: Alert, Oriented x3 Skin: Normal Color, Warm/Dry; No Ecchymosis Results Lab Laboratory Tests 07/27/22 12:00: Body Fluid Source PLEURAL, Body Fluid Color RED, Body Fluid Appearance MKD BLDY, Body Fluid WBC 1.676, Body Fluid RBC 0.131, Body Fl Polynuclear WBCs (%)(Auto) 25.5, Body Fluid Mononuclear Cells % Auto 74.5, Body Fluid Slide Review Yes, Body Fluid Glucose 124, Body Fluid Total Protein 3.8 07/28/22 05:10: White Blood Count 19.2H, Red Blood Count 4.62, Hemoglobin 13.3, Hematocrit 42, Mean Corpuscular Volume 91, Mean Corpuscular Hemoglobin 29, Mean Corpuscular Hemoglobin Concent 32, Red Cell Distribution Width 13.5, Platelet Count 314, Mean Platelet Volume 8.5L, Immature Granulocyte % (Auto) 1, Neutrophils (%) (Auto) 77H, Lymphocytes (%) (Auto) 7L, Monocytes (%) (Auto) 10, Eosinophils (%) (Auto) 4, Basophils (%) (Auto) 0, Neutrophils # (Auto) 14.8H, Lymphocytes # (Auto) 1.4, Monocytes # (Auto) 1.9H, Eosinophils # (Auto) 0.8H, Basophils # (Auto) 0.0, Immature Granulocyte # (Auto) 0.2H, Sodium Level 137, Potassium Level 3.7, Chloride Level 105, Carbon Dioxide Level 23, Anion Gap 9, Blood Urea Nitrogen 18, Creatinine 0.83, Estimat Glomerular Filtration Rate 106, BUN/Creatinine Ratio 22, Glucose Level 104, Calcium Level 8.5, Corrected Calcium 9.4, Total Bilirubin 0.3, Aspartate Amino Transf (AST/SGOT) 14, Alanine Aminotransferase (ALT/SGPT) 39, Alkaline Phosphatase 63, Total Protein 5.4L, Albumin 2.9L Microbiology 07/26/22 MRSA Screen - Final, Complete MRSA not isolated 07/26/22 Blood Culture - Preliminary, Resulted No growth Assessment/Plan Assessment/Plan Assessment/Plan Right sided plural effusion with nodularity- Per CT, Thoracentesis on 07-28-2022 Right sided rib pain/Dyspnea/Hypoxia Acute respirotry distress/Pneumonia Plan Pain management Continue steroids, Abx, IV fluids Encourage ambulation NIRAV JEFFERY DO 07/28/22 1251: Subjective Time Seen by a Provider: 12:31 Subjective/Events-last exam Pt seen and examined, complains of pain in right lower lung and "can't take a deep breath". Review of Systems General: No Chills, No Night Sweats; Fatigue Pulmonary: Dyspnea, Cough Cardiovascular: No: Chest Pain Gastrointestinal: No: Nausea, Vomiting, Abdominal Pain Genitourinary: No Dysuria Objective Exam General Appearance: Mild Distress, Obese HEENT: PERRL/EOMI, Moist Mucous Membranes Respiratory: Chest Non Tender, No Accessory Muscle Use, No Respiratory Di stress, Decreased Breath Sounds (Right lower lobe, remainder is CTA), Other (Right sided rib pain at levels of T9-T10, Sight of throacentesis is covered in no signs of active bleeding) Cardiovascular: Regular Rate, Rhythm, No Murmur Gastrointestinal: non tender, soft, other (Right sided ribs 9-12 extremely tender to palpation) Extremity: No Calf Tenderness Neurologic/Psychiatric: Alert, No Motor/Sensory Deficits Assessment/Plan Assessment/Plan Assessment/Plan Right sided plural effusion with nodularity- Per CT, Thoracentesis on 07-28-2022 Right sided rib pain/Dyspnea/Hypoxia Acute respirotry distress/Pneumonia Plan Pain management, Continue steroids, Abx, IV fluids, Encourage ambulation and IS use. RT consult. Awaiting thoracentesis results Supervisory-Addendum Brief Verification & Attestation Participated in pt care: history, MDM, physical Personally performed: exam, history, MDM, supervision of care Care discussed with: Medical Student Procedures: n/a Verification and Attestation of Medical Student E/M Service A medical student performed and documented this service. I then reviewed and verified all information documented by the medical student and made modifications to such information, when appropriate. I personally performed a physical exam, medical decision making and then discussed any differences between the notes and made revisions as necessary to create one note. Nirav Jeffery , 07/28/22 , 12:51 MELODIE RENO Jul 28, 2022 06:36 NIRAV JEFFERY DO Jul 28, 2022 12:51
[2022-07-28] MEDS: RT-ALBUTEROL SULF 2.5 MG/3 ML PRE-MIX VIAL INH SCH ×2 (07:40→20:04)
[2022-07-28 07:48] VITALS: BP 124/72
[2022-07-28] MEDS: DOCUSATE SODIUM 100 MG (COLACE) CAP PO SCH ×3 (08:07→20:09)
[2022-07-28] MEDS ORDERED: LOSA1TAB20 PO (10:48)
[2022-07-28] MEDS ORDERED: ACHD5005 PO (10:48)
[2022-07-28] MEDS ORDERED: BENZ-36 PO (10:48)
[2022-07-28] MEDS ORDERED: ALBU8.5H6 PO (10:49)
--- NOTE | 2022-07-28 11:15 | Progress Note ---
Subjective Subjective/Events-last exam States chronic cough, seen in [place], had CT scan 3 years ago. Will have cough for a few months and get over it, but comes right back. Cough is sometimes productive, sometimes not. Would lead to shortness of breath, sometimes coughed enough to vomit. They had associated it with allergies in the past, partly bec ause he couldn't get rid of it or find another answer. Today feels a little more short of breath again, was a lot better yesterday after thoracentesis. Focused Exam Lactate Level 07/26/22 13:00: Lactic Acid Level 1.76 Objective Exam Last Set of Vital Signs Vital Signs Date Time Temp Pulse Resp B/P (MAP) Pulse Ox O2 Delivery O2 Flow Rate FiO2 07/28/22 08:00 Nasal Cannula 5.00 07/28/22 07:48 35.9 88 18 124/72 (89) 96 Capillary Refill : I&O Intake and Output 07/28/22 00:00 Intake Total 1575 ml Balance 1575 ml Intake Oral 1075 ml IV Total 500 ml # Voids 6 General: Alert, Mild Distress Lungs: Other (decreased air movement right side to lower 2/3, clear left) Heart: Regular Rate Abdomen: Normal Bowel Sounds, Soft Neuro: Normal Speech Psych/Mental Status: Mental Status NL, Mood NL Results/Procedures Lab Laboratory Tests 07/27/22 12:00: Body Fluid Source PLEURAL, Body Fluid Color RED, Body Fluid Appearance MKD BLDY, Body Fluid WBC 1.676, Body Fluid RBC 0.131, Body Fl Polynuclear WBCs (%)(Auto) 25.5, Body Fluid Mononuclear Cells % Auto 74.5, Body Fluid Slide Review Yes, Body Fluid Glucose 124, Body Fluid Total Protein 3.8 07/28/22 05:10: White Blood Count 19.2H, Red Blood Count 4.62, Hemoglobin 13.3, Hematocrit 42, Mean Corpuscular Volume 91, Mean Corpuscular Hemoglobin 29, Mean Corpuscular Hemoglobin Concent 32, Red Cell Distribution Width 13.5, Platelet Count 314, Mean Platelet Volume 8.5L, Immature Granulocyte % (Auto) 1, Neutrophils (%) (Auto) 77H, Lymphocytes (%) (Auto) 7L, Monocytes (%) (Auto) 10, Eosinophils (%) (Auto) 4, Basophils (%) (Auto) 0, Neutrophils # (Auto) 14.8H, Lymphocytes # (Auto) 1.4, Monocytes # (Auto) 1.9H, Eosinophils # (Auto) 0.8H, Basophils # (Auto) 0.0, Immature Granulocyte # (Auto) 0.2H, Sodium Level 137, Potassium Level 3.7, Chloride Level 105, Carbon Dioxide Level 23, Anion Gap 9, Blood Urea Nitrogen 18, Creatinine 0.83, Estimat Glomerular Filtration Rate 106, BUN/Cre atinine Ratio 22, Glucose Level 104, Calcium Level 8.5, Corrected Calcium 9.4, Total Bilirubin 0.3, Aspartate Amino Transf (AST/SGOT) 14, Alanine Aminotransferase (ALT/SGPT) 39, Alkaline Phosphatase 63, Total Protein 5.4L, A lbumin 2.9L Microbiology 07/26/22 MRSA Screen - Final, Complete MRSA not isolated 07/26/22 Blood Culture - Preliminary, Resulted No growth Radiology Assessment/Plan Assessment/Plan (1) Pneumonia of right lower lobe due to infectious organism Status: Acute Assessment & Plan: Zosyn, vancomycin (2) Pleural effusion, right Status: Acute Assessment & Plan: s/p thoracentesis on 07/27, pathology pending. (3) Pleural nodules Status: Acute Assessment & Plan: Concerning for possible malignancy, discussed with patient. Awaiting pleural fluid path. (4) Respiratory failure Status: Acute Assessment & Plan: Requiring 5 lpm supplemental oxygen. Hopeful to go home soon, discussed need to decrease supplemental oxygen requirement. Qualifiers: Qualified Codes: J96.01 - Acute respiratory failure with hypoxia (5) DVT prophylaxis Status: Acute Assessment & Plan: Enoxaparin NEVA ROWE MD Jul 28, 2022 11:15
--- NOTE | 2022-07-28 11:39 | Diagnostic Imaging Report ---
INDICATION: Shortness of breath. EXAMINATION: PA and lateral chest. FINDINGS: There is a small right pleural effusion. Some atelectasis at both lung bases, right greater than left. Heart size and pulmonary vascularity are both increased. IMPRESSION: Cardiomegaly with pulmonary venous congestion, small right pleural effusion, and bibasilar atelectasis. Dictated by: Dictated on workstation # [id number]
[2022-07-28 12:01] VITALS: BP 131/73
[2022-07-28] MEDS: KETOROLAC 30 MG/ML VIAL IVP PRN ×2 (13:11→19:43)
[2022-07-28] MEDS: CATHETER FLUSH 10 ML SYR IV SCH ×2 (13:13→19:51)
[2022-07-28] MEDS ORDERED: CATHETER FLUSH 10 ML SYR IV PRN (13:15)
[2022-07-28 15:37] VITALS: BP 131/79
[2022-07-28] MEDS: ENOXAPARIN 40 MG/0.4 ML (LOVENOX) SYR SC SCH (17:16)
[2022-07-28 19:01] VITALS: BP 141/89
[2022-07-28 23:19] VITALS: BP 124/82
[2022-07-29] MEDS: KETOROLAC 30 MG/ML VIAL IVP PRN ×4 (01:54→15:57)
[2022-07-29] MEDS: LORazepam 0.5 MG (ATIVAN) TABLET PO PRN ×3 (02:00→20:15)
[2022-07-29] MEDS: CATHETER FLUSH 10 ML SYR IV SCH ×3 (04:13→20:19)
[2022-07-29] MEDS: VANCOMYCIN 1500MG/300ML PREMIX IV SCH (04:13)
[2022-07-29] MEDS: PIPERACILLIN SODIUM/TAZOBACTAM 4.5 GM in NS (IVPB) 100 ML IV SCH ×3 (04:13→20:16)
[2022-07-29 04:14] VITALS: BP 115/82
[2022-07-29 05:15] LABS: BASOPHILS % (AUTO) 0 % (0-10); EOSINOPHILS # (AUTO) 0.9 10^3/uL (0.0-0.3); EOSINOPHILS % (AUTO) 6 % (0-10); HEMATOCRIT 40 % (40-54); HEMOGLOBIN 12.7 g/dL (13.3-17.7); LYMPHOCYTES # (AUTO) 1.4 10^3/uL (1.0-4.0); LYMPHOCYTES % (AUTO) 9 % (12-44); MEAN CORPUSCULAR HEMOGLOBIN 29 pg (25-34); MEAN CORPUSCULAR HGB CONC 32 g/dL (32-36); MEAN CORPUSCULAR VOLUME 91 fL (80-99); MEAN PLATELET VOLUME 8.4 fL (9.0-12.2); MONOCYTES # (AUTO) 1.7 10^3/uL (0.0-1.0); MONOCYTES % (AUTO) 11 % (0-12); NEUTROPHILS # (AUTO) 11.5 10^3/uL (1.8-7.8); NEUTROPHILS % (AUTO) 73 % (42-75); PLATELET COUNT 277 10^3/uL (130-400); WHITE BLOOD COUNT 15.8 10^3/uL (4.3-11.0)
[2022-07-29 05:29] LABS: ALBUMIN 2.7 GM/DL (3.2-4.5); BILIRUBIN,TOTAL 0.5 MG/DL (0.1-1.0); CALCIUM 8.3 MG/DL (8.5-10.1); CREATININE SERUM 0.85 MG/DL (0.60-1.30); TOTAL PROTEIN 5.2 GM/DL (6.4-8.2)
--- NOTE | 2022-07-29 07:11 | Progress Note - Surgery ---
DIPAK [place] 07/29/22 0711: Subjective Date Seen by a Provider: Jul 29, 2022 Subjective/Events-last exam 50 year old male currently being followed for acute respiratory distress and rib pain related to PNA and pleural effusion on the right. Per other notes, the patient was admitted to [facility] on 07/[address] scan done at the [place] [facility] demonstrated a large R pleural effusion with nodularity along with patchy opacities in the right lung. He had been diagnosed with pneumonia on 07/18 and despite having completed antibiotic and steroid courses, was experiencing wo rsening right sided rib pain and SOB, prompting his visit to the ER. Today he is 2 days s/p thoracentesis and receiving 4L of supplemental oxygen by nasal canula. At this time, he describes non radiating pain of the right lower ribs rated 5/10 that is exacerbated by coughing and ambulation. This is similar to pain he has reported over the past few days, though an improvement relative to admission. He continues to have exertional SOB and a dry, intermittent cough that he believes are slightly improving daily. He notes some fatigue due to poor sleep last night but otherwise has no complaints. He endorses a BM last night. He denies chest pain, extremity pain, chills, lightheadedness, N/V/D or abdominal pain. Review of Systems General: No Chills, No Night Sweats; Fatigue HEENT: No Head Aches, No Sore Throat Pulmonary: Dyspnea, Cough (dry, intermittent) Cardiovascular: No: Chest Pain, Palpitations Gastrointestinal: No: Nausea, Vomiting, Abdominal Pain Musculoskeletal: back pain (lower back, mild); No: neck pain Neurological: No: Weakness, Confusion Focused Exam Lactate Level 07/26/22 13:00: Lactic Acid Level 1.76 Respiratory: Chest Non Tender, No Accessory Muscle Use, Decreased Breath Sounds (right lower lobe) Cardiovascular: Regular Rate, Rhythm, No Murmur Peripheral Pulses: 3+ Carotid (R), 3+ Carotid (L) Skin: warm/dry Objective Exam Vital Signs Date Time Temp Pulse Resp B/P (MAP) Pulse Ox O2 Delivery O2 Flow Rate FiO2 07/29/22 04:14 36.6 92 20 115/82 (93) 93 Nasal Cannula 4.00 07/28/22 23:19 36.8 92 20 124/82 (96) 94 Nasal Cannula 4.00 07/28/22 20:04 95 Nasal Cannula 4.00 07/28/22 19:50 95 Nasal Cannula 4.00 07/28/22 19:45 Nasal Cannula 4.00 07/28/22 19:40 Nasal Cannula 4.00 07/28/22 19:01 37.0 99 20 141/89 (106) 95 Nasal Cannula 5.00 07/28/22 15:37 36.7 88 20 131/79 (96) 95 Nasal Cannula 5.00 07/28/22 12:01 36.2 85 18 131/73 (92) 95 Nasal Cannula 5.00 07/28/22 08:00 Nasal Cannula 5.00 07/28/22 07:48 35.9 88 18 124/72 (89) 96 Nasal Cannula 5.00 07/28/22 07:40 92 Room Air 0.00 I & O0 07/29/22 07:00 Intake Total 3385 ml Balance 3385 ml Capillary Refill : General Appearance: Mild Distress, Obese HEENT: Pharynx Normal, Moist Mucous Membranes Neck: Non Tender, Supple Respiratory: Chest Non Tender, No Accessory Muscle Use, Decreased Breath Sounds (Right lower lobe, remainder is CTA), Other (Right sided rib pain at levels of T9-T10, Sight of throacentesis is covered in no signs of active bleeding) Cardiovascular: Regular Rate, Rhythm, No Murmur Peripheral Pulses: 2+ Radial Pulses (R), 2+ Radial Pulses (L) Gastrointestinal: normal bowel sounds, non tender, other Extremity: No Calf Tenderness, No Pedal Edema Neurologic/Psychiatric: Alert, Oriented x3, No Motor/Sensory Deficits Skin: Normal Color, Warm/Dry; No Ecchymosis Other comments TTP of right ribs 8 - 10 Results Lab Laboratory Tests 07/29/22 05:01: White Blood Count 15.8H, Red Blood Count 4.37, Hemoglobin 12.7L, Hematocrit 40, Mean Corpuscular Volume 91, Mean Corpuscular Hemoglobin 29, Mean Corpuscular Hemoglobin Concent 32, Red Cell Distribution Width 13.5, Platelet Count 277, Mean Platelet Volume 8.4L, Immature Granulocyte % (Auto) 1, Neutrophils (%) (Auto) 73, Lymphocytes (%) (Auto) 9L, Monocytes (%) (Auto) 11, Eosinophils (%) (Auto) 6, Basophils (%) (Auto) 0, Neutrophils # (Auto) 11.5H, Lymphocytes # (Auto) 1.4, Monocytes # (Auto) 1.7H, Eosinophils # (Auto) 0.9H, Basophils # (Auto) 0.0, Immature Granulocyte # (Auto) 0.2H, Sodium Level 138, Potassium Level 4.0, Chloride Level 105, Carbon Dioxide Level 24, Anion Gap 9, Blood Urea Nitrogen 17, Creatinine 0.85, Estimat Glomerular Filtration Rate 105, BUN/Creatinine Ratio 20, Glucose Level 92, Calcium Level 8.3L, Corrected Calcium 9.3, Total Bilirubin 0.5, Aspartate Amino Transf (AST/SGOT) 17, Alanine Aminotransferase (ALT/SGPT) 40, Alkaline Phosphatase 59, Total Protein 5.2L, Albumin 2.7L Microbiology 07/26/22 MRSA Screen - Final, Complete MRSA not isolated 07/26/22 Blood Culture - Preliminary, Resulted No growth Assessment/Plan Assessment/Plan Assessment/Plan Pleural effusion, right - s/p thoracentesis (07/27); pathology pending Pneumonia of right lower lobe - zosyn and vancomycin maintained Pleural nodules - concerning for possible malignancy Acute respiratory distress - oxygen saturation of 93% on 4.00 L by nasal canula Plan: encourage ambulation and await pathology results. NIRAV JEFFERY DO 07/29/22 1421: Subjective Time Seen by a Provider: 11:32 Subjective/Events-last exam Pt seen and examined, states he thinks his breathing is better but still can't take deep breaths. Nurse states he is taking very small, very shallow breaths because of pain and she has been unable to try and wean his O2. Review of Systems General: No Chills, No Night Sweats Pulmonary: Dyspnea, Cough (dry, intermittent) Cardiovascular: No: Chest Pain, Palpitations Gastrointestinal: No: Nausea, Vomiting, Abdominal Pain Musculoskeletal: back pain (lower back, mild) Objective Exam General Appearance: Mild Distress, Obese HEENT: Pharynx Normal, Moist Mucous Membranes Respiratory: No Accessory Muscle Use, No Respiratory Distress (but using O2 NC), Decreased Breath Sounds (Right lobe, can barely hear breath sounds....possibly better above nipple mary), Other (Right sided rib pain at levels of T9-T10, dullness to percussion in right lung) Cardiovascular: Regular Rate, Rhythm, No Murmur Gastrointestinal: non tender, soft Extremity: No Calf Tenderness Neurologic/Psychiatric: Alert, Oriented x3 Skin: Warm/Dry Assessment/Plan Assessment/Plan Assessment/Plan Pleural effusion, right - s/p thoracentesis (07/27); pathology pending Pneumonia of right lower lobe - zosyn and vancomycin maintained Pleural nodules - concerning for possible malignancy Acute respiratory distress - oxygen saturation of 93% on 4.00 L by nasal canula Plan: will repeat CXR today, encourage IS use and ambulation. Will have RT assess pt, for need of home O2. Supervisory-Addendum Brief Verification & Attestation Participated in pt care: history, MDM, physical Personally performed: exam, history, MDM, supervision of care Care discussed with: Medical Student Procedures: n/a Verification and Attestation of Medical Student E/M Service A medical student performed and documented this service. I then reviewed and verified all information documented by the medical student and made modifi cations to such information, when appropriate. I personally performed a physical exam, medical decision making and then discussed any differences between the notes and made revisions as necessary to create one note. Nirav Jeffery , 07/29/22 , 14:21 [place] Jul 29, 2022 07:11 NIRAV JEFFERY DO Jul 29, 2022 14:21
[2022-07-29 07:26] VITALS: BP 125/80
[2022-07-29] MEDS: RT-ALBUTEROL SULF 2.5 MG/3 ML PRE-MIX VIAL INH SCH ×2 (07:48→19:35)
[2022-07-29] MEDS: LORazepam INJ 2 MG/ML (ATIVAN) VIAL IVP PRN (08:32)
[2022-07-29] MEDS: DOCUSATE SODIUM 100 MG (COLACE) CAP PO SCH ×2 (08:33→21:00)
[2022-07-29 11:19] VITALS: BP 121/76
[2022-07-29 15:33] VITALS: BP 136/81
[2022-07-29] MEDS: ENOXAPARIN 40 MG/0.4 ML (LOVENOX) SYR SC SCH (15:44)
--- NOTE | 2022-07-29 16:08 | Progress Note ---
Subjective Subjective/Events-last exam Still feeling very worn out, short of breath with movement. Objective Exam Last Set of Vital Signs Vital Signs Date Time Temp Pulse Resp B/P (MAP) Pulse Ox O2 Delivery O2 Flow Rate FiO2 07/29/22 15:33 36.9 94 20 136/81 (99) 95 4.00 07/29/22 11:19 High Flow N/C Capillary Refill : I&O Intake and Output 07/29/22 00:00 Intake Total 3510 ml Balance 3510 ml Intake Oral 2710 ml IV Total 800 ml # Voids 11 # Bowel Movements 4 General: Alert, Mild Distress Lungs: Other (decreased air movement right to mid lung field) Heart: Regular Rate, No Murmurs Neuro: Normal Speech Psych/Mental Status: Mood NL Results/Procedures Lab Laboratory Tests 07/29/22 05:01: White Blood Count 15.8H, Red Blood Count 4.37, Hemoglobin 12.7L, Hematocrit 40, Mean Corpuscular Volume 91, Mean Corpuscular Hemoglobin 29, Mean Corpuscular Hemoglobin Concent 32, Red Cell Distribution Width 13.5, Platelet Count 277, M miguel Platelet Volume 8.4L, Immature Granulocyte % (Auto) 1, Neutrophils (%) (Auto) 73, Lymphocytes (%) (Auto) 9L, Monocytes (%) (Auto) 11, Eosinophils (%) (Auto) 6, Basophils (%) (Auto) 0, Neutrophils # (Auto) 11.5H, Lymphocytes # (Auto) 1.4, Monocytes # (Auto) 1.7H, Eosinophils # (Auto) 0.9H, Basophils # (Auto) 0.0, Immature Granulocyte # (Auto) 0.2H, Sodium Level 138, Potassium Level 4.0, Chloride Level 105, Carbon Dioxide Level 24, Anion Gap 9, Blood Urea Nitrogen 17, Creatinine 0.85, Estimat Glomerular Filtration Rate 105, BUN/Creatinine Ratio 20, Glucose Level 92, Calcium Level 8.3L, Corrected Calcium 9.3, Total Bilirubin 0.5, Aspartate Amino Transf (AST/SGOT) 17, Alanine Aminotransferase (ALT/SGPT) 40, Alkaline Phosphatase 59, Total Protein 5.2L, Albumin 2.7L Microbiology 07/27/22 Acid Fast Bacilli Culture (Ref Lab - Preliminary, Resulted 07/26/22 MRSA Screen - Final, Complete MRSA not isolated 07/26/22 Blood Culture - Preliminary, Resulted No growth Radiology Assessment/Plan Assessment/Plan (1) Pneumonia of right lower lobe due to infectious organism Status: Acute Assessment & Plan: Zosyn Vancomycin d/c Leukocytosis improving (2) Pleural effusion, right Status: Acute Assessment & Plan: s/p thoracentesis on 07/27, pathology pending. (3) Pleural nodules Status: Acute Assessment & Plan: Concerning for possible malignancy, discussed with patient. Awaiting pleural fluid path. (4) Respiratory failure Status: Acute Assessment & Plan: 07/28 Requiring 5 lpm supplemental oxygen. Hopeful to go home soon, discussed need to decrease supplemental oxygen requirement. 07/29- Still on 4 lpm supplemental oxygen and difficulty with activity, continue to wean as tolerated Qualifiers: Qualified Codes: J96.01 - Acute respiratory failure with hypoxia (5) DVT prophylaxis Status: Acute Assessment & Plan: Enoxaparin NEVA ROWE MD Jul 29, 2022 16:08
--- NOTE | 2022-07-29 17:32 | Diagnostic Imaging Report ---
INDICATION: Pleural effusion. TIME OF EXAM: 1:51 p.m. COMPARISON: Correlation is made with prior chest from 07/27/2022. FINDINGS: Heart is enlarged. Density has developed in the medial aspect of the right hemithorax. Very little aerated lung is identified on today's study. There does appear to be some infiltrate or atelectasis in the aerated lung. Left lung does show some subsegmental atelectasis in the base. There does appear to be some right pleural fluid. No pneumothorax is seen. IMPRESSION: Development of increased opacification of the right hemithorax when compared with exam two days earlier. This could be owing to a combination of reaccumulation of pleural fluid versus parenchymal consolidation. CT may be useful for further characterization. Dictated by: Dictated on workstation # [id number]
[2022-07-29 19:43] VITALS: BP 163/81
[2022-07-29] MEDS: MELATONIN 3 MG TABLET PO PRN (20:15)
[2022-07-29] MEDS: HYDROmorphone 2 MG/ML VIAL (DILAUDID) IV PRN (20:42)
[2022-07-30] VITALS (8 sets, daily range): BP systolic 124–145; BP diastolic 80–93
[2022-07-30] MEDS: RT-ALBUTEROL SULF 2.5 MG/3 ML PRE-MIX VIAL INH PRN ×2 (00:14→22:44)
[2022-07-30] MEDS: KETOROLAC 30 MG/ML VIAL IVP PRN ×4 (00:15→23:58)
[2022-07-30] MEDS: LORazepam 0.5 MG (ATIVAN) TABLET PO PRN ×3 (00:25→23:58)
[2022-07-30] MEDS: PIPERACILLIN SODIUM/TAZOBACTAM 4.5 GM in NS (IVPB) 100 ML IV SCH ×3 (03:08→19:55)
[2022-07-30] MEDS: CATHETER FLUSH 10 ML SYR IV SCH ×3 (03:09→19:55)
[2022-07-30 05:33] LABS: BASOPHILS # (AUTO) 0.1 10^3/uL (0.0-0.1); BASOPHILS % (AUTO) 0 % (0-10); EOSINOPHILS # (AUTO) 0.8 10^3/uL (0.0-0.3); EOSINOPHILS % (AUTO) 5 % (0-10); HEMATOCRIT 38 % (40-54); HEMOGLOBIN 12.1 g/dL (13.3-17.7); LYMPHOCYTES # (AUTO) 1.1 10^3/uL (1.0-4.0); LYMPHOCYTES % (AUTO) 6 % (12-44); MEAN CORPUSCULAR HEMOGLOBIN 29 pg (25-34); MEAN CORPUSCULAR HGB CONC 32 g/dL (32-36); MEAN CORPUSCULAR VOLUME 90 fL (80-99); MEAN PLATELET VOLUME 8.4 fL (9.0-12.2); MONOCYTES # (AUTO) 1.8 10^3/uL (0.0-1.0); MONOCYTES % (AUTO) 10 % (0-12); NEUTROPHILS # (AUTO) 14.5 10^3/uL (1.8-7.8); NEUTROPHILS % (AUTO) 79 % (42-75); PLATELET COUNT 283 10^3/uL (130-400); WHITE BLOOD COUNT 18.5 10^3/uL (4.3-11.0)
[2022-07-30 05:50] LABS: ALBUMIN 2.8 GM/DL (3.2-4.5); BILIRUBIN,TOTAL 0.6 MG/DL (0.1-1.0); CALCIUM 8.5 MG/DL (8.5-10.1); CREATININE SERUM 0.77 MG/DL (0.60-1.30); POTASSIUM 3.5 MMOL/L (3.6-5.0); TOTAL PROTEIN 5.5 GM/DL (6.4-8.2)
--- NOTE | 2022-07-30 06:34 | Progress Note - Surgery ---
DIPAK [place] 07/30/22 0633: Subjective Date Seen by a Provider: Jul 30, 2022 Time Seen by a Provider: 06:20 Subjective/Events-last exam The patient endorses worsening of his breathing and cough since yesterday. He is now feeling short of breath nearly constantly at rest (previously limited to exertion) and and still cannot take a full inhale due to rib pain. His cough (unproductive) has grown more frequent since yesterday. He says his rib pain is localized to his lower right ribs and averages a 5/10 on the pain scale, spiking to 10/10 with coughing or deep breathing, which is an improvement relative to the last few days. He attributes this improvement in pain to the increased amount of pain medication he has received since last night.Additionally, he reports night sweats beginning last night. He admits to fatigue, which he attributes to continued poor sleep. He denies chills or decreased appetite. He admits to some right lower quadrant pain abdominal pain and pressure since yesterday. He denies N/V/D, dizziness, lightheadness, and chest pain. Review of Systems General: No Chills; Night Sweats, Fatigue HEENT: No Head Aches, No Sore Throat Pulmonary: Dyspnea, Cough (dry), Pleuritic Chest Pain (ribs 8-10 posteriorly on the right ) Cardiovascular: No: Chest Pain, Palpitations, Lt Headedness Gastrointestinal: Abdominal Pain (pain with inspiration in the right lower quadrant); No: Nausea, Vomiting Genitourinary: No Dysuria, No Frequency Musculoskeletal: neck pain, back pain Neurological: No: Weakness, Numbness Objective Exam Vital Signs Date Time Temp Pulse Resp B/P (MAP) Pulse Ox O2 Delivery O2 Flow Rate FiO2 07/30/22 06:09 97 Nasal Cannula 5.00 07/30/22 03:00 36.2 104 20 128/85 (99) 97 Nasal Cannula 5.00 07/30/22 00:19 37.0 110 20 131/90 (104) 94 Nasal Cannula 5.00 07/29/22 20:20 Nasal Cannula 5.00 07/29/22 19:43 36.1 108 20 163/81 (108) 94 Nasal Cannula 4.00 07/29/22 19:35 95 Nasal Cannula 4.00 07/29/22 15:33 36.9 94 20 136/81 (99) 95 4.00 07/29/22 11:19 36.8 110 20 121/76 (91) 94 High Flow N/C 4.00 07/29/22 08:00 94 Nasal Cannula 4.00 07/29/22 07:50 93 Nasal Cannula 4.00 07/29/22 07:26 37.1 92 20 125/80 (95) 94 High Flow N/C 4.00 I & O 07/30/22 07:00 Intake Total 2640 ml Output Total 175 ml Balance 2465 ml Capillary Refill : General Appearance: Mild Distress, Obese HEENT: Pharynx Normal, Moist Mucous Membranes Neck: Non Tender, Supple Respiratory: Decreased Breath Sounds (markedly decreased throughout the ribe lobe ), Inspiration (limited due to pain), Other (Right sided rib pain at levels of T9-T10, dullness to percussion in right lung) Cardiovascular: No Murmur, Tachycardia Peripheral Pulses: 3+ Carotid (R), 3+ Carotid (L); 2+ Radial Pulses (R), 2+ Radial Pulses (L) Gastrointestinal: normal bowel sounds, soft, tenderness (of right lower quadrant withn deep palpation) Extremity: No Calf Tenderness, No Pedal Edema Neurologic/Psychiatric: Alert, Oriented x3 Skin: Normal Color, Damp Results Lab Laboratory Tests 07/30/22 05:23: White Blood Count 18.5H, Red Blood Count 4.17L, Hemoglobin 12.1L, Hematocrit 38L , Mean Corpuscular Volume 90, Mean Corpuscular Hemoglobin 29, Mean Corpuscular Hemoglobin Concent 32, Red Cell Distribution Width 13.6, Platelet Count 283, Mean Platelet Volume 8.4L, Immature Granulocyte % (Auto) 1, Neutrophils (%) (Auto) 79H, Lymphocytes (%) (Auto) 6L, Monocytes (%) (Auto) 10, Eosinophils (%) (Auto) 5, Basophils (%) (Auto) 0, Neutrophils # (Auto) 14.5H, Lymphocytes # (Auto) 1.1, Monocytes # (Auto) 1.8H, Eosinophils # (Auto) 0.8H, Basophils # (Auto) 0.1, Immature Granulocyte # (Auto) 0.2H, Sodium Level 137, Potassium Level 3.5L, Chloride Level 107, Carbon Dioxide Level 22, Anion Gap 8, Blood Urea Nitrogen 15, Creatinine 0.77, Estimat Glomerular Filtration Rate 108, BUN/Creatinine Ratio 19, Glucose Level 115H, Calcium Level 8.5, Corrected Calcium 9.5, Total Bilirubin 0.6, Aspartate Amino Transf (AST/SGOT) 13, Alanine Aminotransferase (ALT/SGPT) 30, Alkaline Phosphatase 64, Total Protein 5.5L, Albumin 2.8L Microbiology 07/27/22 Acid Fast Bacilli Culture (Ref Lab - Preliminary, Resulted 07/26/22 MRSA Screen - Final, Complete MRSA not isolated 07/26/22 Blood Culture - Preliminary, Resulted No growth Assessment/Plan Assessment/Plan Assessment/Plan Pleural effusion, right - s/p thoracentesis removing 2200 mL of fluid (07/27); awaiting pathology - CXR on 07/29 showed increased opacification - reaccumulation of fluid vs consolidation - repeat CXR today Pneumonia of right lower lobe - zosyn maintained Pleural nodules - cytology negative for malignancy (07/30) Acute respiratory distress - receiving 5.00 L by nasal canula on 07/29 (receiving 4L previously) Plan: will repeat CXR today, encourage IS use and ambulation. Will have RT assess pt, for need of home O2. NIRAV JEFFERY DO 07/30/22 1603: Subjective Time Seen by a Provider: 09:12 Subjective/Events-last exam Pt was seen and examined, complains of worsening SOB and chest pain. He has needed to increase O2 and he doesn't want to move. Later on in the day he sta rted couging up blood. Review of Systems General: Fatigue Pulmonary: Dyspnea, Cough (dry), Pleuritic Chest Pain (ribs 8-10 posteriorly on the right ) Cardiovascular: No: Chest Pain, Palpitations Gastrointestinal: Abdominal Pain (pain with inspiration in the right lower quadrant); No: Nausea, Vomiting Genitourinary: No Dysuria, No Frequency Musculoskeletal: neck pain, back pain Objective Exam General Appearance: Moderate Distress, Obese HEENT: Moist Mucous Membranes Respiratory: Accessory Muscle Use, Decreased Breath Sounds (markedly decreased throughout the ribe lobe ), Inspiration (limited due to pain), Other (Right sided rib pain at levels of T9-T10, dullness to percussion in right lung) Cardiovascular: No Murmur, Tachycardia Gastrointestinal: soft, tenderness (of right lower quadrant withn deep palpation) Extremity: No Pedal Edema Neurologic/Psychiatric: Alert Skin: Damp Assessment/Plan Assessment/Plan Assessment/Plan Pleural effusion, right - s/p thoracentesis removing 2200 mL of fluid (07/27); awaiting pathology - CXR on 07/29 showed increased opacification - reaccumulation of fluid vs consolidation - Attempted thoracentesis this afternoon was unsuccessful Pneumonia of right lung - zosyn maintained Pleural nodules - cytology negative for malignancy (07/30) Acute respiratory distress - receiving 5.00 L by nasal canula on 07/29 (receiving 4L previously) Plan: ordered a CT today and went over with Radiologist, there is more consolidation and lung collapse. No mucous plug seen, Radiology will try to drain tomorrow, encourage IS use and ambulation. Will have RT assess pt, for need of home O2. Supervisory-Addendum Brief Verification & Attestation Participated in pt care: history, MDM, physical Personally performed: exam, history, MDM, supervision of care Care discussed with: Medical Student Procedures: n/a Verification and Attestation of Medical Student E/M Service A medical student performed and documented this service. I then reviewed and verified all information documented by the medical student and made modifications to such information, when appropriate. I personally performed a physical exam, medical decision making and then discussed any differences between the notes and made revisions as necessary to create one note. Nirav Jeffery , 07/30/22 , 16:03 [place] Jul 30, 2022 06:33 NIRAV JEFFERY DO Jul 30, 2022 16:03
[2022-07-30] MEDS: RT-ALBUTEROL SULF 2.5 MG/3 ML PRE-MIX VIAL INH SCH ×4 (06:44→21:34)
[2022-07-30] MEDS: DOCUSATE SODIUM 100 MG (COLACE) CAP PO SCH ×2 (09:04→21:36)
[2022-07-30] MEDS: RT-IPRATROPIUM (ATROVENT) 0.5MG/2.5ML AMP IH SCH ×4 (11:14→21:34)
--- NOTE | 2022-07-30 11:40 | Progress Note ---
Subjective Subjective/Events-last exam Still very short of breath, chest pain is bothering him to the point of difficulty completing breathing treatments and moving. Feels like he has a lot of muscle tightness on the opposite side now related to trying to splint his side when he coughs. Objective Exam Last Set of Vital Signs Vital Signs Date Time Temp Pulse Resp B/P (MAP) Pulse Ox O2 Delivery O2 Flow Rate FiO2 07/30/22 11:22 36.8 104 18 134/81 (98) 96 Nasal Cannula 5.00 Capillary Refill : I&O Intake and Output 07/30/22 00:00 Intake Total 2565 ml Balance 2565 ml Intake Oral 2165 ml IV Total 400 ml # Voids 8 # Bowel Movements 2 General: Alert, No Acute Distress Lungs: Other (decreased air movement right other than small portion of apex, expiratory wheezing on left) Heart: Other (tachycardic) Neuro: Normal Speech Psych/Mental Status: Mood NL Results/Procedures Lab Laboratory Tests 07/30/22 05:23: White Blood Count 18.5H, Red Blood Count 4.17L, Hemoglobin 12.1L, Hematocrit 38L , Mean Corpuscular Volume 90, Mean Corpuscular Hemoglobin 29, Mean Corpuscular Hemoglobin Concent 32, Red Cell Distribution Width 13.6, Platelet Count 283, Mean Platelet Volume 8.4L, Immature Granulocyte % (Auto) 1, Neutrophils (%) (Auto) 79H, Lymphocytes (%) (Auto) 6L, Monocytes (%) (Auto) 10, Eosinophils (%) (Auto) 5, Basophils (%) (Auto) 0, Neutrophils # (Auto) 14.5H, Lymphocytes # (Auto) 1.1, Monocytes # (Auto) 1.8H, Eosinophils # (Auto) 0.8H, Basophils # (Auto) 0.1, Immature Granulocyte # (Auto) 0.2H, Sodium Level 137, Potassium Level 3.5L, Chloride Level 107, Carbon Dioxide Level 22, Anion Gap 8, Blood Urea Nitrogen 15, Creatinine 0.77, Estimat Glomerular Filtration Rate 108, BUN/Creatinine Ratio 19, Glucose Level 115H, Calcium Level 8.5, Corrected Calcium 9.5, Total Bilirubin 0.6, Aspartate Amino Transf (AST/SGOT) 13, Alanine Aminotransferase (ALT/SGPT) 30, Alkaline Phosphatase 64, Total Protein 5.5L, Albumin 2.8L Microbiology 07/27/22 Acid Fast Bacilli Culture (Ref Lab - Preliminary, Resulted 07/26/22 MRSA Screen - Final, Complete MRSA not isolated 07/26/22 Blood Culture - Preliminary, Resulted No growth Radiology Assessment/Plan Assessment/Plan (1) Pneumonia of right lower lobe due to infectious organism Status: Acute Assessment & Plan: Zosyn Vancomycin d/c Leukocytosis had improved, but is slightly increased again today 07/30 (2) Pleural effusion, right Status: Acute Assessment & Plan: s/p thoracentesis on 07/27, pathology pending. 07/30- Pulm consult due to recurrence in spite of treating pneumonia. (3) Pleural nodules Status: Acute Assessment & Plan: Concerning for possible malignancy, discussed with patient. Awaiting pleural fluid path. (4) Respiratory failure Status: Acute Assessment & Plan: 07/28 Requiring 5 lpm supplemental oxygen. Hopeful to go home soon, discussed need to decrease supplemental oxygen requirement. 07/29- Still on 4 lpm supplemental oxygen and difficulty with activity, continue to wean as tolerated 07/30- back to 5 lpm, now wheezing. Add ipratropium to albuterol. May have repeat thoracentesis today. Fluid cultures negative to date including AFB smear/culture. Qualifiers: Qualified Codes: J96.01 - Acute respiratory failure with hypoxia (5) DVT prophylaxis Status: Acute Assessment & Plan: Enoxaparin NEVA ROWE MD Jul 30, 2022 11:40
[2022-07-30] MEDS ORDERED: KCL 20 MEQ TAB (K-DUR) PO NR (12:00)
[2022-07-30] MEDS: CYCLOBENZAPRINE 10 MG (FLEXERIL) TAB PO SCH ×2 (12:26→19:53)
[2022-07-30] MEDS ORDERED: NS 100 ML (IVPB) BAG IV ONE (15:15)
[2022-07-30] MEDS ORDERED: HOLD METFORMIN - RECEIVED CONTRAST 20 ML VIAL IV SCH (15:15)
[2022-07-30] MEDS ORDERED: IOHEXOL 350 MG/ML 100 ML (OMNIPAQUE 350) VIAL IV ONE (15:15)
--- NOTE | 2022-07-30 16:03 | Diagnostic Imaging Report ---
PROCEDURE: CT angiography of the chest with contrast. TECHNIQUE: Multiple contiguous axial images were obtained through the chest after uneventful bolus administration of intravenous contrast. 3D reconstructed CTA MIP acquisitions were also performed. Auto Exposure Controls were utilized during the CT exam to meet ALARA standards for radiation dose reduction. INDICATION: Increasing shortness of breath. COMPARISON: Correlation is made with CT chest from 07/26/2022. FINDINGS: Evaluation of the pulmonary arterial system is without evidence of thromboembolism. No definite filling defects are seen within central, lobar or segmental branches. Thoracic aorta is normal in caliber. There is no dissection. A large multiloculated effusion throughout the right hemithorax is noted. There are loculations in the upper right thorax medially and laterally. There are multiple loculations laterally as well as in the right base. There is associated consolidated right upper and right lower lobes with only a small amount of aerated lung on the right side. No pneumothorax is seen. Left lung appears to be fairly clear apart from subsegmental atelectasis in the lingula and left lower lobe. Upper abdomen is unremarkable. IMPRESSION: 1. No evidence of pulmonary embolism or acute aortic disease. 2. Large loculated effusion on the right side with associated consolidation/atelectasis of the right lung. Dictated by: Dictated on workstation # [id number]
[2022-07-30] MEDS: HYDROmorphone 2 MG/ML VIAL (DILAUDID) IV PRN (16:11)
[2022-07-30] MEDS: LORazepam INJ 2 MG/ML (ATIVAN) VIAL IVP PRN (17:59)
[2022-07-30] MEDS: ENOXAPARIN 40 MG/0.4 ML (LOVENOX) SYR SC SCH (19:52)
[2022-07-30] MEDS: MELATONIN 3 MG TABLET PO PRN (19:53)
[2022-07-30] MEDS ORDERED: guaiFENesin/DM (ROBITUSSIN DM) 10 ML UDC PO PRN (21:45)
[2022-07-31] MEDS: RT-IPRATROPIUM (ATROVENT) 0.5MG/2.5ML AMP IH SCH ×2 (03:33→06:51)
[2022-07-31] MEDS: RT-ALBUTEROL SULF 2.5 MG/3 ML PRE-MIX VIAL INH SCH ×2 (03:33→06:51)
[2022-07-31] MEDS: PIPERACILLIN SODIUM/TAZOBACTAM 4.5 GM in NS (IVPB) 100 ML IV SCH (03:39)
[2022-07-31 03:40] VITALS: BP 132/85
[2022-07-31 05:27] LABS: BASOPHILS # (AUTO) 0.1 10^3/uL (0.0-0.1); BASOPHILS % (AUTO) 0 % (0-10); EOSINOPHILS # (AUTO) 0.6 10^3/uL (0.0-0.3); EOSINOPHILS % (AUTO) 3 % (0-10); HEMATOCRIT 34 % (40-54); LYMPHOCYTES # (AUTO) 0.9 10^3/uL (1.0-4.0); LYMPHOCYTES % (AUTO) 5 % (12-44); MEAN CORPUSCULAR HEMOGLOBIN 29 pg (25-34); MEAN CORPUSCULAR HGB CONC 32 g/dL (32-36); MEAN CORPUSCULAR VOLUME 90 fL (80-99); MEAN PLATELET VOLUME 8.5 fL (9.0-12.2); MONOCYTES # (AUTO) 1.9 10^3/uL (0.0-1.0); MONOCYTES % (AUTO) 9 % (0-12); NEUTROPHILS # (AUTO) 16.2 10^3/uL (1.8-7.8); NEUTROPHILS % (AUTO) 81 % (42-75); PLATELET COUNT 310 10^3/uL (130-400); WHITE BLOOD COUNT 19.9 10^3/uL (4.3-11.0)
[2022-07-31 05:48] LABS: INR 1.1 (0.8-1.4); PROTHROMBIN TIME PATIENT 14.8 SEC (12.2-14.7)
[2022-07-31 05:48] LABS: ALBUMIN 2.9 GM/DL (3.2-4.5)
[2022-07-31 05:49] LABS: POTASSIUM 4.1 MMOL/L (3.6-5.0)
[2022-07-31 05:50] LABS: CALCIUM 8.4 MG/DL (8.5-10.1)
[2022-07-31 05:51] LABS: TOTAL PROTEIN 5.5 GM/DL (6.4-8.2)
[2022-07-31 05:53] LABS: BILIRUBIN,TOTAL 0.7 MG/DL (0.1-1.0)
[2022-07-31 05:54] LABS: CREATININE SERUM 0.78 MG/DL (0.60-1.30)
[2022-07-31] MEDS: KETOROLAC 30 MG/ML VIAL IVP PRN (05:59)
[2022-07-31] MEDS: LORazepam 0.5 MG (ATIVAN) TABLET PO PRN (05:59)
[2022-07-31] MEDS: CATHETER FLUSH 10 ML SYR IV SCH (06:00)
[2022-07-31 06:09] LABS: EOSINOPHILS % (MANUAL) 5 %; LYMPHOCYTES % (MANUAL) 6 %; MONOCYTES % (MANUAL) 8 %; NEUTROPHILS % (MANUAL) 79 %; RBC MORPH NORMAL; REACTIVE LYMPHOCYTES 2 %
--- NOTE | 2022-07-31 06:40 | Progress Note - Surgery ---
DIPAK [place]ADO 07/31/22 0640: Subjective Date Seen by a Provider: Jul 31, 2022 Time Seen by a Provider: 06:20 Subjective/Events-last exam Patient reports worsening shortness of breath and right sided rib pain, noting that his breaths have become "even more shallow". He also notes coughing up dark red blood several times last night and this morning. His night sweats have grown more severe since they began two nights ago. He additionally admits to a headache since yesterday. He denies chills, chest pain, N/V/D. Review of Systems General: Night Sweats, Fatigue HEENT: Head Aches; No Sore Throat Pulmonary: Dyspnea, Cough (associated with coughing dark red blood since last evening), Pleuritic Chest Pain Cardiovascular: No: Chest Pain, Palpitations Gastrointestinal: No: Nausea, Vomiting, Abdominal Pain Genitourinary: No Dysuria, No Frequency Musculoskeletal: neck pain, back pain Neurological: No: Weakness, Numbness Objective Exam Vital Signs Date Time Temp Pulse Resp B/P (MAP) Pulse Ox O2 Delivery O2 Flow Rate FiO2 07/31/22 03:40 36.6 110 20 132/85 (101) 97 Nasal Cannula 5.00 07/31/22 03:33 94 Nasal Cannula 5.00 07/30/22 23:57 37.5 110 20 140/88 (105) 96 Nasal Cannula 5.00 07/30/22 22:44 95 Nasal Cannula 5.00 07/30/22 19:58 Nasal Cannula 5.00 07/30/22 19:39 36.1 108 20 145/88 (107) 97 Nasal Cannula 4.00 07/30/22 18:30 97 Nasal Cannula 5.00 07/30/22 16:13 37.5 100 20 143/93 (110) 96 Nasal Cannula 4.00 07/30/22 11:22 36.8 104 18 134/81 (98) 96 Nasal Cannula 5.00 07/30/22 11:14 96 Nasal Cannula 5.00 07/30/22 08:27 35.1 106 96 07/30/22 08:00 Nasal Cannula 5.00 07/30/22 07:38 35.1 106 18 124/80 (95) 96 Nasal Cannula 5.00 07/30/22 06:44 95 Nasal Cannula 5.00 I & O 07/31/22 07:00 Intake Total 1920 ml Output Total 100 ml Balance 1820 ml Capillary Refill : General Appearance: Moderate Distress, Obese HEENT: Moist Mucous Membranes Neck: Non Tender, Supple Respiratory: Accessory Muscle Use, Decreased Breath Sounds (markedly decreased throughout the right lobe ), Inspiration (limited due to pain), Other (Right sided rib pain at levels of T9-T10, dullness to percussion in right lung) Cardiovascular: No Murmur, Tachycardia Peripheral Pulses: 3+ Carotid (R), 3+ Carotid (L); 2+ Radial Pulses (R), 2+ Radial Pulses (L) Gastrointestinal: soft, tenderness (of right lower quadrant with deep palpation) Extremity: No Pedal Edema Neurologic/Psychiatric: Alert Skin: Damp Results Lab Laboratory Tests 07/31/22 05:10: White Blood Count 19.9H, Red Blood Count 3.81L, Hemoglobin 11.0L, Hematocrit 34L , Mean Corpuscular Volume 90, Mean Corpuscular Hemoglobin 29, Mean Corpuscular Hemoglobin Concent 32, Red Cell Distribution Width 13.7, Platelet Count 310, Mean Platelet Volume 8.5L, Immature Granulocyte % (Auto) 1, Neutrophils (%) (Auto) 81H, Lymphocytes (%) (Auto) 5L, Monocytes (%) (Auto) 9, Eosinophils (%) (Auto) 3, Basophils (%) (Auto) 0, Neutrophils # (Auto) 16.2H, Lymphocytes # (Auto) 0.9L, Monocytes # (Auto) 1.9H, Eosinophils # (Auto) 0.6H, Basophils # (Auto) 0.1, Immature Granulocyte # (Auto) 0.3H, Neutrophils % (Manual) 79, Lymphocytes % (Manual) 6, Monocytes % (Manual) 8, Eosinophils % (Manual) 5, Reactive Lymphocytes 2, Blood Morphology Comment NORMAL, Sodium Level 137, Potassium Level 4.1, Chloride Level 105, Carbon Dioxide Level 22, Anion Gap 10, Blood Urea Nitrogen 13, Creatinine 0.78, Estimat Glomerular Filtration Rate 108, BUN/Creatinine Ratio 17, Glucose Level 118H, Calcium Level 8.4L, Corrected Calcium 9.3, Total Bilirubin 0.7, Aspartate Amino Transf (AST/SGOT) 14, Alanine Aminotransferase (ALT/SGPT) 31, Alkaline Phosphatase 55, Total Protein 5.5L, Albumin 2.9L 07/31/22 05:18: Prothrombin Time 14.8H, INR Comment 1.1 Microbiology 07/27/22 Acid Fast Bacilli Culture (Ref Lab - Preliminary, Resulted 07/26/22 MRSA Screen - Final, Complete MRSA not isolated 07/26/22 Blood Culture - Preliminary, Resulted No growth Assessment/Plan Assessment/Plan Assessment/Plan Pleural effusion, right - s/p thoracentesis removing 2200 mL of fluid (07/27); awaiting pathology - CXR on 07/29 showed increased opacification - reaccumulation of fluid vs consolidation - Attempted thoracentesis on 07/30 was unsuccessful - CT on 07/30 negative for pulmonary embolism or acute aortic disease Pneumonia of right lung - zosyn maintained Pleural nodules - cytology negative for malignancy (07/30) Acute respiratory distress - receiving 5.00 L by nasal canula since 07/29 (receiving 4L previously) - continue to wean oxygen as tolerated Plan: Patient being transferred [facility] today to be evaluated by pulmonology NIRAV JEFFERY DO 07/31/22 0927: Subjective Time Seen by a Provider: 08:52 Subjective/Events-last exam Pt seen, he is being transferred up to [place] for Pulmonology. He states he is doing "ok", still with SOB and coughing up blood. Review of Systems General: Night Sweats, Fatigue HEENT: Head Aches Pulmonary: Dyspnea, Cough (associated with coughing dark red blood since last evening) Cardiovascular: No: Chest Pain, Palpitations Gastrointestinal: No: Nausea Musculoskeletal: neck pain, back pain Objective Exam General Appearance: Moderate Distress, Obese HEENT: Moist Mucous Membranes Respiratory: Accessory Muscle Use, Decreased Breath Sounds (markedly decreased throughout the right lobe, almost none), Inspiration (limited due to pain), Other (Right sided rib pain at levels of T9-T10, dullness to percussion in right lung) Cardiovascular: No Murmur, Tachycardia Gastrointestinal: soft, no organomegaly, tenderness (of right lower quadrant with deep palpation) Neurologic/Psychiatric: Alert Skin: Damp Assessment/Plan Assessment/Plan Assessment/Plan Pleural effusion, right - s/p thoracentesis removing 2200 mL of fluid (07/27); no malignant cells seen, inflammation - CXR on 07/29 showed increased opacification - reaccumulation of fluid vs consolidation - Attempted thoracentesis on 07/30 was unsuccessful - CT on 07/30 negative for pulmonary embolism or acute aortic disease Pneumonia of right lung - zosyn maintained Pleural nodules - cytology negative for malignancy (07/30) Acute respiratory distress - receiving 5.00 L by nasal canula since 07/29 (receiving 4L previously) - continue to wean oxygen as tolerated Plan: Patient being transferred [facility] today to be evaluated by pulmonology I discussed with pt and that he now has consolidation and loculation, he may need VATS or Decortication open. It is better that he gets up somewhere that they take care of this often. Supervisory-Addendum Brief Verification & Attestation Participated in pt care: history, MDM, physical Personally performed: exam, history, MDM, supervision of care Care discussed with: Medical Student Procedures: n/a Verification and Attestation of Medical Student E/M Service A medical student performed and documented this service. I then reviewed and verified all information documented by the medical student and made modifications to such information, when appropriate. I personally performed a physical exam, medical decision making and then discussed any differences between the notes and made revisions as necessary to create one note. Nirav Jeffery , 07/31/22 , 09:27 DIPAK [place] Jul 31, 2022 06:40 NIRAV JEFFERY DO Jul 31, 2022 09:27
[2022-07-31] MEDS ORDERED: PIPE4.5F IV (07:19)
--- NOTE | 2022-07-31 07:19 | Discharge Summary ---
Discharge Summary Hospital Course Was the Problem List Reviewed?: Yes Problems/Dx: (1) Pneumonia of right lower lobe due to infectious organism Status: Acute (2) Pleural nodules Status: Acute (3) Pleural effusion, right Status: Acute (4) Respiratory failure Status: Acute Qualifiers: Qualified Codes: J96.01 - Acute respiratory failure with hypoxia (5) Sepsis Status: Acute Hospital Course Date of Admission: Jul 26, 2022 at 15:25 Admission Diagnosis : Family Physician/Provider: Jimmy Clemons MD Date of Discharge: 07/31/22 Discharge Diagnosis: presumed malignant effusion pathology of cytology pending s/p thoracentesis with loculation noted exceeds our capacity so sent to OP hospital Hospital Course: Lengthy course after he was admitted to ICU from [facility] ER for severe right sided PNA with concerns for pulmonary masses and large effusion requiring Dr Jeffery so perform thoracentesis with removal of blood presumed malignant effusi on. He stabilized and was moved to 4th floor and maintained on IV abx. More concern for reaccumulation of effusion considering the suspicion for malignancy so he was ultimately transferred to OP hospital arranged by Dr Posada the day before but transportation was unavailable until morning. Nurse was concerned about hemoptysis he was experiencing 15 minutes before he was tra nsferred but he remained stable and Dr Jeffery evaluated him at the bedside and approved DC because he did not need intubation and EMS was ACLS trained if anything changed in route and there was no evidence of the need to intubate since vitals were stable and he was not in any distress. Labs and Pending Lab Test: Laboratory Tests 07/31/22 05:10: White Blood Count 19.9H, Red Blood Count 3.81L, Hemoglobin 11.0L, Hematocrit 34L , Mean Corpuscular Volume 90, Mean Corpuscular Hemoglobin 29, Mean Corpuscular Hemoglobin Concent 32, Red Cell Distribution Width 13.7, Platelet Count 310, Mean Platelet Volume 8.5L, Immature Granulocyte % (Auto) 1, Neutrophils (%) (Auto) 81H, Lymphocytes (%) (Auto) 5L, Monocytes (%) (Auto) 9, Eosinophils (%) (Auto) 3, Basophils (%) (Auto) 0, Neutrophils # (Auto) 16.2H, Lymphocytes # (Auto) 0.9L, Monocytes # (Auto) 1.9H, Eosinophils # (Auto) 0.6H, Basophils # (Auto) 0.1, Immature Granulocyte # (Auto) 0.3H, Neutrophils % (Manual) 79, Lymphocytes % (Manual) 6, Monocytes % (Manual) 8, Eosinophils % (Manual) 5, Reactive Lymphocytes 2, Blood Morphology Comment NORMAL, Sodium Level 137, Potassium Level 4.1, Chloride Level 105, Carbon Dioxide Level 22, Anion Gap 10, Blood Urea Nitrogen 13, Creatinine 0.78, Estimat Glomerular Filtration Rate 108, BUN/Creatinine Ratio 17, Glucose Level 118H, Calcium Level 8.4L, Corrected C alcium 9.3, Total Bilirubin 0.7, Aspartate Amino Transf (AST/SGOT) 14, Alanine Aminotransferase (ALT/SGPT) 31, Alkaline Phosphatase 55, Total Protein 5.5L, Albumin 2.9L 07/31/22 05:18: Prothrombin Time 14.8H, INR Comment 1.1 Microbiology 07/27/22 Acid Fast Bacilli Culture (Ref Lab - Preliminary, Resulted 07/26/22 MRSA Screen - Final, Complete MRSA not isolated 07/26/22 Blood Culture - Preliminary, Resulted No growth Home Meds Active Zosyn 4.5 gm/100 ml Galaxy Bag (Duhcnpgnzyfx-Qwod-Pdvdueem,Iso) 4.5 Gram/100 Ml Froz.piggy 4.5 Gm IV Q8H 3 Days Reported Ventolin Hfa (Albuterol Sulfate) 90 Mcg Hfa.aer.ad 1 Puff PO Q6H PRN 1 PUFF = 90 MCG Benzonatate 100 Mg Capsule 100 Mg PO TID Hydrocodone-Acetamin 5-325 mg (Hydrocodone/Acetaminophen) 5 Mg-325 Mg Tablet 1 Tab PO Q4H PRN FILLED 07-25-2022 #30 Losartan-Hctz 50-12.5 mg Tab (Losartan/Hydrochlorothiazide) 50 Mg-12.5 Mg Tablet 1 Each PO DAILY Assessment/Pt Instructions [facility] level of care Discharge Planning: <30 minutes discharge planning Discharge Instructions Discharge Diet: No Restrictions Activity as Tolerated: Yes Discharge Physical Examination Vital Signs Vital Signs Date Time Temp Pulse Resp B/P (MAP) Pulse Ox O2 Delivery O2 Flow Rate FiO2 07/31/22 03:40 36.6 110 20 132/85 (101) 97 Nasal Cannula 5.00 General Appearance: Anxious, Chronically ill Respiratory: Decreased Breath Sounds, Wheezing Cardiovascular: Regular Rate, Rhythm Neurologic/Psychiatric: Alert, Oriented x3, No Motor/Sensory Deficits, Normal Mood/Affect Allergies: Coded Allergies: No Known Drug Allergies (Unverified , 01/17/19) Discharge Summary Date of Admission Jul 26, 2022 at 15:25 Date of Discharge Discharge Date: Jul 31, 2022 Admission Diagnosis Assessment: Acute respiratory failure Recurrent PNA failed outpatient treatment Right sided large pleural effusion Hypoxia Massess on CT scan? Plan: IV abx O2 Dr Jeffery consult Thoracentesis? Discharge Diagnosis Assessment: Acute respiratory failure-improved Recurrent PNA failed outpatient treatment Right sided large pleural effusion s/p thoracentesis removing bloody fluid so presumed malignant effusion Hypoxia Masses on CT scan? Plan: IV abx Move to floor O2 Dr Jeffery consult Thoracentesis ADRIANA KEMP DO Jul 31, 2022 07:19
[2022-07-31 07:42] VITALS: BP 135/83
[2022-07-31] MEDS: HYDROmorphone 2 MG/ML VIAL (DILAUDID) IV PRN (09:32)
[2022-07-31] MEDS: CYCLOBENZAPRINE 10 MG (FLEXERIL) TAB PO SCH (10:07)
[2022-07-31] MEDS: DOCUSATE SODIUM 100 MG (COLACE) CAP PO SCH (10:07)
--- NOTE | 2022-08-01 10:19 | Physician Query Clarification ---
PQ-Further Specificity Admission/Discharge Admission Date: Jul 26, 2022 at 15:25 Discharge Date: Jul 31, 2022 at 09:45 Dr. Abbott, The medical record reflects the following clinical scenario: History/Risk Factors: pleural effusion, pneumonia, atelectasis, acute hypoxic respiratory failure Clinical Findings: pleural effusion gram stain shows no epithelial cells, many WBC's, no bacteria, red blood cell debris Treatment: Thoracentesis, IV Decadron, IV Morphine, IV Piperacillin, IV Vancomycin Question: Can you further specify if the rt pleural effusion is malignant or not per the clinical indicators above? Please document a response in the Progress Notes or Discharge Summary. 1. Rt pleural effusion no malignancy 2. Rt malignant pleural effusion unknown primary 3. Other, with explanation of the clinical findings. 4. Clinically undetermined, no explanation for the clinical findings. PHYSICIAN RESPONSE Can you specify per above: Clinically undetermined In responding to this query, please exercise your independent professional judgment. The purpose of this communication is to more accurately reflect the complexity of your patients condition. The fact that a question is asked does not imply that any particular answer is desired or expected. Thank you for your timely response to this clarification. Requestors name: Mehran THIS PHYSICIAN QUERY FORM IS A PERMANENT PART OF THE MEDICAL RECORD MEHRAN QUEZADA Aug 01, 2022 10:19 ADRIANA ABBOTT DO Aug 01, 2022 12:13
== END 2022-07-31 09:45 | disposition short-term general hospital (02) | DRG 186 ==
LOC: EDUNIT# 12:10 → ER FS 12:12 → ICU 15:25 → 4TH 07-27 12:56
PROVIDERS: ADMIT Internal Medicine; ATTEND Internal Medicine
PROC: 0W993ZZ Drainage of Right Pleural Cavity, Percutaneous Approach (ICD-10-PCS; principal; 2022-07-27)
DX: J90 Pleural effusion, not elsewhere classified (principal); J18.9 Pneumonia, unspecified organism; J96.01 Acute respiratory failure with hypoxia; J98.11 Atelectasis; R04.2 Hemoptysis; R91.8 Other nonspecific abnormal finding of lung field; I10 Essential (primary) hypertension; F17.220 Nicotine dependence, chewing tobacco, uncomplicated; Z86.718 Personal history of other venous thrombosis and embolism; Z79.52 Long term (current) use of systemic steroids; Z79.899 Other long term (current) drug therapy
CPT/HCPCS: 36415; 71045; 71046; 71260; 71275; 80053; 82805; 82945; 83605; 83615; 83735; 83880; 84100; 84157; 84484; 85007; 85025; 85027; 85610; 85730; 87015; 87040; 87070; 87075; 87081; 87116; 87205; 87206; 89051; 93005; 94640; 94760; 96365; 96375